=== PATIENT | female | born 1940 | race Caucasian/White ===

== ENCOUNTER 2024-01-02 06:39 | Inpatient (IN) | payer OTHER, SELFPAY ==
[2024-01-02] VITALS (7 sets, daily range): BP systolic 121–157; BP diastolic 59–83; BMI 30.9; BMI 31.9
[2024-01-02] MEDS: NSS 1000 IV ×3 (05:26→09:51)
--- NOTE | 2024-01-02 05:27 | ED.GENMED ---
History of Present Illness
General
Chief Complaint: Abdominal Symptoms
Source: patient, ambulance crew and previous hospital records (Previous hospitalization October 2020 for somewhat similar presentation, found to have partial small bowel obstruction due to abdominal wall hernia. Resolved with conservative
measures.)
Exam Limitations: none
Time Seen by Provider: 01/02/24 05:13
Nursing documentation reviewed up to this point in time: agreed with
Travel History
Have you had any contact with someone who has COVID-19?: No
Do you have any symptoms of coronavirus? Fever > 100 degrees, chills, cough, shortness of breath, sore throat, loss of taste or smell, muscle aches, or headache?: No
History of Present Illness
History of Present Illness:
This is an 83-year-old woman who resides at home with her . She has remote history of colon resection with colostomy/colostomy reversal 1985. She subsequently has history of small bowel obstructions all treated conservatively, most recently
October 2020.
She and her went out to dinner last night, she went to bed uneventfully but then awoke sometime this morning with abrupt onset of nausea, vomiting and several episodes of loose stools. She admits to intermittent crampy abdominal discomfort
but is most concerned with persistent nausea. According to EMS patient has been vomiting coffee ground material.
Very similar presentation October 2020 and at that time similar description of coffee-ground emesis. No prior history of GI bleeds.
No close contacts with similar symptoms.
No recent travel nor recent antibiotic use.
She denies dizziness nor lightheadedness. No headache, no chest pain or back pain. She denies fever nor chills.
She was given a small bolus of IV fluids prehospital as well as an IV dose of Zofran 4 mg.
Past History
Past History
ED Past Medical History: GERD, HTN, Hypothyroidism and Other (Bowel Obstruction, Fracture Left foot)
ED Past Surgical History: Bowel resection, Cholecystectomy (possible removed patient unsure) and Other (Multiple joint replacements. Multiple abdominal surgeries, diverticulits, bowel resection, colostomy and colostomy reversal last over 20 years
ago.)
Social History
Tobacco: Former smoker
Alcohol: Occasional
Drug: None
Personal:
Living: with family
Employment: Retired
Family History
Family History: Other (Noncontributory)
Phy Exam
Physical Exam
Physical Exam:
GENERAL: 83-year-old woman appears her stated age. She is moderately drowsy, oriented x 3, appears in moderate distress, holding emesis basin at the ready.
EYE: anicteric
NECK: Supple, nontender, no meningismus, no significant adenopathy.
ENT: posterior pharynx is clear, oral mucosa is mildly dry. No rhinorrhea.
CARDIAC: Regular rate and rhythm. no murmur.
LUNGS: Clear breath sounds bilaterally, no acute respiratory distress, no wheezes/rales/rhonchi
ABDOMEN: Rotund, soft, nondistended, mild to moderate tenderness left upper quadrant, left lateral mid abdomen with mild palpable firmness left lower quadrant to left mid abdomen. Hyperactive somewhat high-pitched bowel sounds throughout, no r/g,
no cvat.
NEUROLOGICAL: Moderately drowsy, oriented x3, no focal neuro deficits.
SKIN: Warm and dry, normal color, skin intact. No rash. A few streaks of dried, brown liquid stool bilateral feet and medial ankles.
MUSCULOSKELETAL: No C/C/E. peripheral pulses are full and equal b/l. No palpable tenderness.
PSYCH: Poorly interactive.
Course
Orders/Labs/Results
Orders:
Orders
01/02/24 05:11
IV Insert/Care/Rem.- Treatment PRN
01/02/24 05:12
Electrocardiogram (*1) Urgent
Reason for Study: Abdominal Pain
01/02/24 05:13
EKG- Treatment ONCE
01/02/24 05:20
0.9% Sodium Chloride 1000 ml [Nss] 1,000 ml IV BOLUS
01/02/24 05:22
Alcohol Urgent
Complete Blood Count/With Diff Urgent
Comprehensive Metabolic Panel Urgent
Lactic Acid Urgent
Lipase Urgent
01/02/24 05:24
CT Abd/pelvis W Iv Cont Urgent
Comment:
Reason For Exam: Left sided abd pain, N/V/D-hx SBO
Pantoprazole [Protonix IV] 40 mg IV NOW STA
01/02/24 05:25
Add On- LAB Urgent
Tests Added?: alcohol level
01/02/24 05:26
Urinalysis Reflex To Culture Urgent
01/02/24 05:49
0.9% Sodium Chloride 1000 ml [Nss] 1,000 ml IV BOLUS
01/02/24 05:51
Metoclopramide [Reglan] 10 mg IV NOW STA
Abnormal Lab Results
01/02/24
05:22
WBC 10.9 H 10^3/uL
(4.8-10.8)
MCH 32.1 H pg
(27.0-31.0)
Abs Immat Gran (auto) 0.1 H 10^3/uL
(0-0.05)
Absolute Neuts (auto) 7.8 H 10^3/uL
(1.4-6.5)
Immature Gran % 0.7 H %
(0-0.5)
Potassium 3.4 L mmol/L
(3.5-5.1)
Carbon Dioxide 19 L mmol/L
(22-30)
Glucose 149 H mg/dl
(70-99)
Lactic Acid 4.8 H* mmol/L
(0.7-2.0)
01/02/24 05:22
01/02/24 05:22
Vital Signs
Initial and Last Documented VS:
Initial Vital Signs
Pulse Pulse Ox
74 94
01/02/24 05:13 01/02/24 05:13
Last Documented Vital Signs
Pulse Resp BP Pulse Ox
75 22 121/83 96
01/02/24 05:30 01/02/24 05:14 01/02/24 05:14 01/02/24 05:14
MDM/Problems Addressed
Differential Diagnosis Includes:
Concern for recurrent small bowel obstruction, acute gastroenteritis, upper GI bleed, ischemic bowel. Concern for incarcerated abdominal wall hernia.
Symptoms began sometime this morning, unclear as to how long, concern for acute kidney injury/dehydration, electrolyte abnormality.
Will check labs including lactic acid.
Will initiate IV fluids and plan for CT abdomen pelvis with IV contrast.
Records reviewed. Report of several adverse reactions to narcotics. Currently without complaints of pain and nausea has improved after prehospital Zofran.
Will give an IV dose of Protonix for potential upper GI bleed.
Will consider IV Tylenol for pain if needed.
Chronic conditions affecting care: Previous abdomnial surgery
*Pulse Oximetry
Patient hypoxic: no
*EKG
Interpreted by ED Provider?: Yes
Interpretation: abnormal
Comparison EKG: changes noted (Diffuse, flattened T waves are new compared to previous EKG May 2019.)
Rate: normal
Rhythm: sinus and PAC's
[place]: left axis deviation
Interval: long QT (Borderline long QT)
QRS Pattern: normal QRS
Ischemia: non-specific ST changes
*Assistant Professor Of Nursing Interpretation
Rate: normal
Interpretation: normal
Rhythm: sinus
*Critical Care Note
Total Time (30-74mins, 75-104mins- exclusive of procedures): Not Applicable
Update Note
Update Note:
01/02/2024 0614 AM
Patient continues with nausea but has had no vomiting since arrival to the ED. Medicated with IV Reglan.
Labs remarkable for lactic acidosis at 4.8. Mildly elevated white blood cell count of 10.9. Minimal hypokalemia of 3.4. Normal H&H, normal BUN and creatinine.
CAT scan, initial interpretation by myself shows partial small bowel obstruction with several dilated loops of small bowel on the left side of the abdomen with several loops of bowel within left lower quadrant incisional hernia but no evidence of
incarcerated hernia. Overall CAT scan appears very similar to previous CAT scan October 2020.
History, exam and CAT scan consistent with recurrent small bowel obstruction.
Will admit to hospitalist service, continue IV fluids, antiemetics. Consider NG tube especially if vomiting recurs.
ED Attending Note
-
Portions of this chart may have been created with voice recognition software.� Occasional wrong word or��sound alike� substitutions may have occurred due to the inherent limitations of voice recognition software.
Discharge Plan
Departure
Patient Disposition: Admit
Date of Disposition: 01/02/24
Time of Disposition: 06:13
Admit to doctor: Joelle
Presentation/result/management discussed w/ accepting MD/DO: Hospitalist
Condition: Fair
Discharge Problem:
Partial small bowel obstruction, Incisional hernia, Acidosis, lactic
Prescriptions:
No Action
levothyroxine 150 MCG tablet
150 mcg PO DAILY
citalopram 20 MG tablet
20 mg PO DAILY
pantoprazole 40 MG tablet,delayed release (DR/EC)
40 mg PO DAILY
naproxen sodium [Aleve] 220 MG tablet
440 mg PO DAILY
letrozole 2.5 MG tablet
2.5 mg PO DAILY
Refresh Classic (PF) 10 DROPS dropperette
1 drops BOTH EYES DAILY
multivitamin with folic acid [Tab-A-Mayte] 1 TABLET tablet
1 tab PO DAILY
verapamil 180 MG tablet extended release
360 mg PO DAILY
Interventions
Interventions:
*Risk Screen - Suicide Last Done: 01/02/24 05:14
*General Assessment Last Done: 01/02/24 05:14
*Neglect/Abuse Screening Last Done: 01/02/24 05:14
*ED COVID-19 Vaccine History Last Done: 01/02/24 05:36
[facility] Assessment Last Done: 01/02/24 05:36
[2024-01-02 05:31] LABS: % Basophils 0.9 % (0-2); % Immature Granulocytes 0.7 % (0-0.5); % Lymphocytes 21.9 % (20.5-51.1); % Monocytes 3.7 % (1.7-9.3); % Neutrophils 71.8 % (42.2-75.2); Absolute Basophils 0.1 10^3/uL (0-0.2); Absolute Eosinophils 0.1 10^3/uL (0-0.7); Absolute Immature Granulocytes 0.1 10^3/uL (0-0.05); Absolute Lymphocytes 2.4 10^3/uL (1.2-3.4); Absolute Monocytes 0.4 10^3/uL (0.1-0.6); Absolute Neutrophils 7.8 10^3/uL (1.4-6.5); Hematocrit 39.2 % (37.0-47.0); Hemoglobin 13.5 g/dL (12.0-16.0); Mean Corp Hgb Conc. 34.4 g/dL (33.0-37.0); Mean Corpuscular Hgb 32.1 pg (27.0-31.0); Mean Corpuscular Volume 93.1 fL (81.0-99.0); Mean Platelet Volume 10.4 fL (7.4-10.4); Nucleated Red Blood Cells % 0 %; Platelet Count 397 10^3/uL (130-400); Red Blood Cell Count 4.21 10^6/uL (4.20-5.40); Red Cell Dist. Width 13.2 % (11.5-14.5); White Blood Cell Count 10.9 10^3/uL (4.8-10.8)
[2024-01-02] MEDS: PROTONIX IV 40 MG IV (05:31)
[2024-01-02 05:46] LABS: ALT (SGPT) 14 U/L (0-35); AST (SGOT) 26 U/L (14-36); Albumin 4.3 g/dl (3.5-5.0); Alcohol 54 mg/dl; Alkaline Phosphatase 100 U/L (38-126); Blood Urea Nitrogen 14 mg/dl (7-17); Calcium 9.5 mg/dl (8.4-10.2); Carbon Dioxide 19 mmol/L (22-30); Chloride 104 mmol/L (98-107); Estimated Creatinine Clearance 41 ml/min; Glucose 149 mg/dl (70-99); Lipase 84 U/L (23-300); Potassium 3.4 mmol/L (3.5-5.1); Sodium 137 mmol/L (135-145); Total Bilirubin 0.7 mg/dl (0.2-1.3); Total Protein 7.2 g/dl (6.3-8.2)
[2024-01-02 05:47] LABS: Lactic Acid 4.8 mmol/L (0.7-2.0)
--- NOTE | 2024-01-02 06:02 | HPS.HSE ---
Family Physician
-
Family Physician:
Chief Complaint
-
nausea, vomiting and several episodes of loose stool
History of Present Illness
83F pw abrupt onset of nausea, vomiting and several episodes of loose stools.
Reports intermittent crampy abdominal discomfort but is most concerned with persistent nausea.
According to EMS patient has been vomiting coffee ground material.
Very similar presentation October 2020 and at that time similar description of coffee-ground emesis. No prior history of GI bleeds. HX HTN, hypothyroid , remote history of colon resection with colostomy/colostomy reversal 1985, HX small bowel
obstructions all treated conservatively, most recently October 2020.
Medical History
Past Medical History
Past Medical History: Reports HTN and Hypothyroidism
Past Surgical History: Reports Other
Additional Past Surgical History:
Bowel resection, Cholecystectomy (possible removed patient unsure) and Other (Multiple joint replacements. Multiple abdominal surgeries, diverticulits, bowel resection, colostomy and colostomy reversal last over 20 years ago.)
Social History
Tobacco: Smoker
Alcohol: Occasional
Personal:
Living: With Family
Family History
Family History: Not pertinent
Allergies / Home Medications
Allergies reflects when Allergies were last updated in [facility].
Home Medications with original date entered in [facility]
Allergy/Medication List:
Allergies
Allergy/AdvReac Type Severity Reaction Status Date / Time
cefaclor [From Ceclor] Allergy Anaphylaxis Verified 09/28/21 22:09
Cephalosporins Allergy Rash Verified 09/28/21 22:09
clindamycin Allergy Anaphylaxis Verified 09/28/21 22:09
hydrocodone bitartrate Allergy Sunburn Verified 09/28/21 22:09
[From Vicodin] and skin
peeling
morphine Allergy Itching Verified 09/28/21 22:09
oxycodone [Oxycodone] Allergy Nausea / Verified 09/28/21 22:09
Vomiting
Home Medications
levothyroxine 150 mcg tablet 150 mcg PO DAILY Thyroid 08/24/11
citalopram 20 mg tablet 20 mg PO DAILY Mental Health/Anxiety 01/20/14
pantoprazole 40 mg tablet,delayed release 40 mg PO DAILY Gastrointestinal issue 05/13/18
letrozole 2.5 mg tablet 2.5 mg PO DAILY MALIGNANCY 03/18/20
multivitamin with folic acid 400 mcg tablet (Tab-A-Mayte) 1 tab PO DAILY Supplement 03/18/20
naproxen sodium 220 mg tablet (Aleve) 440 mg PO DAILY Pain 03/18/20
polyvinyl alcohol-povidone (PF) 1.4 %-0.6 % eye drops in a dropperette (Refresh Classic (PF)) 1 drops BOTH EYES DAILY Eye condition 03/18/20
verapamil 180 mg tablet,extended release 360 mg PO DAILY Blood pressure 03/18/20
Review of Systems
-
Constitutional: Reports No Symptoms
EENT: Reports No Symptoms
Respiratory: Reports No Symptoms
Cardiac: Reports No Symptoms
Abdomen/GI: Reports Abdominal Pain, Nausea, Vomiting and Diarrhea
: Reports No Symptoms
Musculoskeletal: Reports No Symptoms
Skin: Reports No Symptoms
Neurological: Reports No Symptoms
Endocrine: Reports No Symptoms
Hematologic/Lymphatic: Reports No Symptoms
Psych: Reports No Symptoms
Physical Exam
Vital Signs
Vital Signs
Pulse Resp BP Pulse Ox
75 22 121/83 96
01/02/24 05:30 01/02/24 05:14 01/02/24 05:14 01/02/24 05:14
Physical Exam
General: Other (see below )
Laboratory Results
-
01/02/24 05:22
01/02/24 05:22
Laboratory Results
Lactic Acid 4.8 mmol/L (0.7-2.0) H* 01/02/24 05:22
Total Bilirubin 0.7 mg/dl (0.2-1.3) 01/02/24 05:22
AST 26 U/L (14-36) 01/02/24 05:22
ALT 14 U/L (0-35) 01/02/24 05:22
Alkaline Phosphatase 100 U/L (38-126) 01/02/24 05:22
Lipase 84 U/L (23-300) 01/02/24 05:22
Data Reviewed
-
Lab Data: Labs Reviewed by me
Old Records: Reviewed
Impression/Plan
-
Reviewed VS: unremarkable
PE
Gen: not toxic
HEENT: ancteric
Neck: supple, no JVD
Lungs: CTA , symmetric AE
Cor: RRR S1 S2
Abdomen: Soft, nontender, mild to moderate tenderness left upper quadrant,
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
MS: no edema
Psych: nl mood and affect
Data
WCC 10.9
Hgb 13.5
Na 137
K 3.4
CO2 19
Cr 1.0
LA 4.8
Nl Lipase
ETOH 54
ASSESSMENT & PLAN
Abrupt onset of nausea, vomiting and several episodes of loose stools.
DDX: Partial SBO, Ischemic BW
- NPO and IVF
- Anti emetics
- Analgesia
- GS consult
NAG acidosis 13
Suspect lactate acidosis 2/2 partial SBO
- IV NS
- f/u BMP
ETOH 54
Suspect ETOH use disorder
- MSAS and observe for now
Essential HTN
- Held Verapamil
Hypothyroidism:
- Held LT4
Depression
- Held Citalopram
GERD
- IV Protonix
Hx breast cancer:
- Held Letrozole
DVT Px: SCD
Code: Full
IP MS
[2024-01-02] MEDS: REGLAN 10 MG IV (06:12)
[2024-01-02 07:39] LABS: Urine Albumin Trace (Neg - Trace); Urine Bilirubin Negative (Negative); Urine Character Clear (Clear); Urine Color Straw; Urine Glucose Negative (Negative); Urine Ketone Negative (Negative); Urine Leukocyte Trace (Negative); Urine Nitrite Negative (Negative); Urine Occult Blood Negative (Negative); Urine Urobilinogen Negative (Neg - 1+); Urine pH 6.5 (5.0-9.0)
[2024-01-02 07:47] LABS: Urine Bacteria Many (Negative)
[2024-01-02 07:48] LABS: Urine Red Blood Cell 0-2 /HPF (0-2)
--- NOTE | 2024-01-02 09:15 | PTCARENOTE ---
Pt admitted to room 421. Slide transferred patient from stretcher to bed. VSS. Pt denying nausea at this time. Pt oriented to room and has call dean within reach.
--- NOTE | 2024-01-02 09:33 | W.PN.HOSP.TC ---
Today's Communication/Plan
-
Conservative management of bowel obstruction for now
Monitor symptoms
Recheck electrolytes
Assessment / Plan
Assessment / Plan
Physical Exam
General: Not in acute distress
HEENT: Normocephalic
Neck: Supple
Lungs: CTAB
Cor: RRR S1 S2
Abdomen: Soft, nontender, distended
APPLICATION TRAINER: AAOx3
Psych: Calm
Assessment/Plan
Abrupt onset of nausea, vomiting and several episodes of loose stools
Partial small bowel obstruction most likely due to adhesions (but less likely due to hernia)
History of Incision Hernia
History of Intestinal Adhesions
History of Colectomy
History of Small Bowel Obstruction
- NPO and IVF
- Anti emetics
- Analgesia
- General surgery consulted, recommendations appreciated
- If symptoms worsen (e.g. vomiting) then place nasogastric tube and notify general surgery
Prolonged QTc
-Avoid/minimize QTc-prolonging medications
- Can consider giving Tigan if needed
Lactate acidosis likely secondary to partial SBO
- IV NS
- f/u BMP
- recheck lactic acid
Hypokalemia
-IV potassium ordered
-Check magnesium
-Recheck labs in the morning
ETOH 54
Suspect ETOH use disorder
- MSAS and observe for now
Essential HTN
- Resumed home Verapamil (at home she takes 180 mg daily but not 360 mg daily)
Hyperlipidemia
Hypothyroidism:
- Continue home Levothyroxine
Major Depressive Disorder
- Hold Citalopram due to QTc
GERD
- Continue PPI
Hx breast cancer:
- Continue Letrozole
Chronic Kidney Disease
Recurrent Urinary Tract Infection
Colonic Diverticulitis
Abdominal aortic atherosclerosis
Osteoarthritis
Non-Alcoholic Fatty Liver Disease
Alcoholism
History of Osteopenia
History of Vertebral Compression Fracture
History of Gait Disorder
Obesity
DVT PPx: Lovenox
Code: Full
Anticipated Discharge: 24 - 48 hours
Subjective/Interval History
-
Date of Service: January 02, 2024
Patient was seen and examined. Her son and grandson were present in the patient's room at the time of patient encounter. She denied nausea or abdominal pain at the time she was seen.
Objective Data
-
Labs:
Laboratory Results
01/02/24
05:22
WBC 10.9 H
Hgb 13.5
Hct 39.2
Plt Count 397
Sodium 137
Potassium 3.4 L
Chloride 104
Carbon Dioxide 19 L
BUN 14
Creatinine 1.0
Glucose 149 H
Calcium 9.5
Total Bilirubin 0.7
AST 26
ALT 14
Alkaline Phosphatase 100
Vital Signs:
Vital Signs
Temp Pulse Resp BP Pulse Ox
97.6 F 98 16 149/76 98
01/02/24 08:52 01/02/24 08:52 01/02/24 08:52 01/02/24 08:52 01/02/24 08:52
[2024-01-02] MEDS: THIAMINE INJECTION 200 MG IV ×2 (09:52→20:16)
--- NOTE | 2024-01-02 11:41 | CON.GS ---
Consultation
-
Date/Time Consultation Requested: 01/02/2024 @8:38
Date/Time Consultation Performed: 01/02/2024 @9:00
Requesting Provider: Mikhail Cedillo MD
Performing Provider: Philip Reis MD
Reason for Consultation: Partial small bowel resection
Medical History
-
Chief Complaint: Nausea and vomiting
History of Present Illness:
83-year-old female who presents to the ED with the acute onset of nausea, vomiting and loose stools that began last night. She states she ate shrimp and corn and the symptoms began shortly thereafter. She has not vomited since last night and her
last bowel and flatus was also last evening. At present her nausea has resolved but she is not hungry. She was having some lower abdominal cramps in the lower abdomen that has also resolved. She still feels somewhat bloated and has no appetite.
She denies any fevers or chills.
She has a history of small bowel obstructions, the last one in 2019. She has a remote history of an open sigmoid resection and colostomy for diverticulitis. After the stoma closure she may have had a wound dehiscence. She had an ostomy hernia
repair using a [place] hernia patch with a bridge technique. She has had 3 bowel obstructions (2015, 2017, 2019), all of which were treated nonoperatively.
Past Medical History
Past Medical History: GERD, HTN, Hypothyroidism and Other (Small bowel obstructions)
Past Surgical History: Bowel Resection (Eren's procedure for diverticulitis), Hernia Repair (Ostomy site) and Orthopedic (Multiple joint replacements)
Social History
Tobacco: Former Smoker
Alcohol: Occasional
Drug: None
Personal:
Living: With Family
Family History
Family History: Reviewed & Not Pertinent
Allergies / Home Medications
Allergy/AdvReac Type Severity Reaction Status Date / Time
cefaclor [From Ceclor] Allergy Anaphylaxis Verified 09/28/21 22:09
Cephalosporins Allergy Rash Verified 09/28/21 22:09
clindamycin Allergy Anaphylaxis Verified 09/28/21 22:09
hydrocodone bitartrate Allergy Sunburn Verified 09/28/21 22:09
[From Vicodin] and skin
peeling
morphine Allergy Itching Verified 09/28/21 22:09
oxycodone [Oxycodone] Allergy Nausea / Verified 09/28/21 22:09
Vomiting
Medication Instructions Recorded Confirmed Type
levothyroxine 150 mcg tablet 150 mcg PO DAILY Thyroid 08/24/11 01/02/24 History
citalopram 20 mg tablet 20 mg PO DAILY Mental 01/20/14 01/02/24 History
Health/Anxiety
pantoprazole 40 mg tablet,delayed 40 mg PO DAILY Gastrointestinal 05/13/18 01/02/24 History
release issue
letrozole 2.5 mg tablet 2.5 mg PO DAILY MALIGNANCY 03/18/20 01/02/24 History
multivitamin with folic acid 400 1 tab PO DAILY Supplement 03/18/20 01/02/24 History
mcg tablet (Tab-A-Mayte)
naproxen sodium 220 mg tablet 440 mg PO DAILY Pain 03/18/20 01/02/24 History
(Aleve)
polyvinyl alcohol-povidone (PF) 1 drops BOTH EYES DAILY Eye 03/18/20 01/02/24 History
1.4 %-0.6 % eye drops in a condition
dropperette (Refresh Classic (PF))
verapamil 180 mg tablet,extended 360 mg PO DAILY Blood pressure 03/18/20 01/02/24 History
release
Review of Systems
-
History Source: Patient
All other systems: Negative unless noted
A 10 point review of systems was completed, and was negative except as per HPI.
Physical Exam
Vital Signs
Temp Pulse Resp BP Pulse Ox
97.6 F 98 16 149/76 98
01/02/24 08:52 01/02/24 08:52 01/02/24 08:52 01/02/24 08:52 01/02/24 08:52
01/01/24 01/02/24 01/03/24
06:59 06:59 06:59
Actual Weight 76.6 kg 76.43 kg
Body Mass Index (BMI) 31.9
Lab Results
01/02/24 05:22
01/02/24 05:22
WBC 10.9 10^3/uL (4.8-10.8) H 01/02/24 05:22
Hgb 13.5 g/dL (12.0-16.0) 01/02/24 05:22
Hct 39.2 % (37.0-47.0) 01/02/24 05:22
Plt Count 397 10^3/uL (130-400) 01/02/24 05:22
Abs Immat Gran (auto) 0.1 10^3/uL (0-0.05) H 01/02/24 05:22
Neutrophils % 71.8 % (42.2-75.2) 01/02/24 05:22
Physical Exam
General: Well Developed, Well Nourished and No Apparent Distress
HEENT: Normocephalic
GI: Soft, Non Tender, Distended (Palpable bowel loops within the hernia at the ostomy site; nontender and no overlying skin changes), Incisions (Long midline incision; colostomy incision with a hernia) and Obese
Musculoskeletal: No Edema
Neuro: Awake and Alert
Data Reviewed
-
CT Scan: Image Personally Visualized and interpreted, Report Reviewed by me and Discussed with Patient
Labs: Labs Reviewed by me and Discussed with Patient
Total Time Spent with Patient (in minutes): 58
Assessment / Plan
-
Partial small bowel obstruction most likely due to adhesions, and less likely the hernia. Her symptoms occurred after dietary indiscretion. At the present time there is no concern for bowel compromise there is no evidence of an internal hernia or
high-grade obstruction. I suspect the point of obstruction is the left lower quadrant and the dilated loops within the hernia sac are secondary.
I reviewed the current findings and treatment options with the patient including nonoperative management versus surgery with the risks and benefits of each. I do not feel surgery is indicated at this time. As she is feeling better, will hold off
on a nasogastric tube unless her symptoms worsen. Will keep her n.p.o. today and hydrate. No oral contrast was given so x-rays are not ordered for the a.m.
[2024-01-02] MEDS: CALAN EXTENDED RELEASE 180 MG PO (12:27)
[2024-01-02] MEDS: REFRESH EYE DROPS (PF) 1 DROPS BOTH EYES (12:28)
[2024-01-02] MEDS: FEMARA 2.5 MG PO (12:39)
[2024-01-02] MEDS: THERAGRAN PO (12:39)
[2024-01-02] MEDS: KCL 260 MEQ IV (13:36)
--- NOTE | 2024-01-02 18:25 | PTCARENOTE ---
Pt had 2 large liquid/loose brown BM's this afternoon. Pt denying nausea at this time.
[2024-01-02 19:27] LABS: Lactic Acid 0.7 mmol/L (0.7-2.0)
[2024-01-02] MEDS: HEPARIN 5000 UNITS SC (20:15)
[2024-01-02] MEDS: MELATONIN 5 MG PO (21:06)
[2024-01-03] MEDS: NSS 1000 IV (02:04)
[2024-01-03 06:00] VITALS: BMI 31.1
[2024-01-03] MEDS: SYNTHROID 150 MCG PO (06:00)
[2024-01-03 08:09] LABS: Hematocrit 31.8 % (37.0-47.0); Hemoglobin 10.8 g/dL (12.0-16.0); Mean Corpuscular Hgb 32.9 pg (27.0-31.0); Platelet Count 295 10^3/uL (130-400); Red Blood Cell Count 3.28 10^6/uL (4.20-5.40); Red Cell Dist. Width 13.4 % (11.5-14.5); White Blood Cell Count 8.8 10^3/uL (4.8-10.8)
[2024-01-03 08:55] LABS: Blood Urea Nitrogen 14 mg/dl (7-17); Calcium 8.4 mg/dl (8.4-10.2); Carbon Dioxide 21 mmol/L (22-30); Chloride 110 mmol/L (98-107); Estimated Creatinine Clearance 49 ml/min; Glucose 78 mg/dl (70-99); Magnesium 1.5 mg/dl (1.6-2.3); Phosphorus 3.6 mg/dl (2.5-4.5); Sodium 137 mmol/L (135-145); eGFR > 60.00
--- NOTE | 2024-01-03 08:57 | W.PN.GS2 ---
Today's Communication / Plan
-
Small bowel follow-through.
Continue nonoperative management of small bowel obstruction (n.p.o., IV fluids, out of bed and ambulate).
Assessment / Plan
-
This is an 83-year-old female with history of sigmoid colectomy status post reversal complicated by stoma site hernia status post bridged [place] hernia patch who presents to our hospital on 01/02/2024 with nausea, vomiting and abdominal pain found to
have recurrent small bowel obstruction in the setting of a known left lower quadrant incisional hernia. She has had 3 prior bowel obstructions (2015, 2017, 2019) treated nonoperatively.
On my review of the CT scan, the transition point seems to be in the left lower quadrant and not within the hernia. However this is a little bit limited given no oral contrast.
Will plan for small bowel follow-through today.
N.p.o., IV fluids. No NG tube for now.
Surgery will continue to follow
Time Spent
Total Time Spent with Patient (in minutes): 25
Subjective Data
-
Date of Service: January 03, 2024
Interval Events:
No acute events overnight. Slept well. Pain Controlled. Denies Nausea/Vomiting, +bowel function.
Objective Data
-
Intake and Output
01/02/24 01/03/24 01/04/24
06:59 06:59 06:59
Intake Total 1780 / 1780
Balance 1780 / 1780
Intake:
Oral fluids 120 / 120
IV fluids (Total) 1400 / 1400
IV piggybacks 260 / 260
Other:
Number of approximated MODERATE 2
amounts of urine
Number of unmeasured liquid
stools
Rectum 1
Vital Signs
Temp Pulse Resp BP Pulse Ox
99.1 F 85 16 143/75 95
01/02/24 23:12 01/02/24 23:12 01/02/24 23:12 01/02/24 23:12 01/02/24 23:12
Lab Results
01/03/24 07:29
01/03/24 07:
Calcium 8.4 mg/dl (8.4-10.2) 01/03/24 07:29
Phosphorus 3.6 mg/dl (2.5-4.5) 01/03/24 07:
Magnesium 1.5 mg/dl (1.6-2.3) L 01/03/24 07:29
Total Bilirubin 0.7 mg/dl (0.2-1.3) 01/02/24 05:22
AST 26 U/L (14-36) 01/02/24 05:22
ALT 14 U/L (0-35) 01/02/24 05:22
Alkaline Phosphatase 100 U/L (38-126) 01/02/24 05:22
Total Protein 7.2 g/dl (6.3-8.2) 01/02/24 05:22
Albumin 4.3 g/dl (3.5-5.0) 01/02/24 05:22
Physical Exam
-
GENERAL/NEURO: Awake, Alert, no distress
CHEST: Unlabored breathing on RA
ABDOMEN: Soft, obese, mildly distended, mildly tender to palpation in the left lower quadrant. Soft reducible hernia noted.
[2024-01-03] MEDS: THERAGRAN 1 TABLET PO (09:08)
[2024-01-03] MEDS: FEMARA 2.5 MG PO (09:08)
[2024-01-03] MEDS: REFRESH EYE DROPS (PF) 1 DROPS BOTH EYES (09:08)
[2024-01-03] MEDS: CALAN EXTENDED RELEASE 180 MG PO (09:08)
[2024-01-03] MEDS: NSS (PRESERVATIVE FREE) 10 ML IV (09:09)
[2024-01-03] MEDS: HEPARIN 5000 UNITS SC ×2 (09:09→20:26)
[2024-01-03] MEDS: PROTONIX IV 40 MG IV (09:09)
[2024-01-03 09:20] VITALS: BP 140/66
[2024-01-03] MEDS: THIAMINE INJECTION 200 MG IV ×2 (09:22→20:28)
--- NOTE | 2024-01-03 14:14 | W.PN.HOSP.TC ---
Today's Communication/Plan
-
stop Verapamil
continue IVF
supplement Mag
Assessment / Plan
Assessment / Plan
Assessment/Plan
Abrupt onset of nausea, vomiting and several episodes of loose stools
CT abd:Mild small bowel dilatation especially left lower quadrant likely associated with anterior abdominal wall hernia likely at site of prior colostomy reversal, suggesting recurrent partial small bowel obstruction. No large bowel obstruction or
free air.
Moderate size hiatal hernia again noted.
Likely subsegmental atelectasis and/or scarring in the left lower lobe. Acute inflammatory/infectious process less likely but cannot be entirely excluded.
Slightly prominent gallbladder and slightly prominent extrahepatic biliary tract without findings to suggest intrahepatic biliary tract dilatation. Suggest correlation with liver function tests.
Small Bowel Study:There is no small bowel obstruction.
There is a left lower quadrant anterior abdominal wall hernia, without obstruction. Initial imaging revealed mild wall thickening however this improves and resolves on delayed imaging.
Contrast is seen within the colon at 1 hour 5 minutes.
Hx of sigmoid colectomy with reversal admitted with presentation consistent with SBO. Passage of stool and active BS noted
History of Incision Hernia
History of Intestinal Adhesions
History of Colectomy
History of Small Bowel Obstruction
- NPO and IVF
start on clears when okay with surgery
- Anti emetics
- Analgesia
- General surgery consulted, recommendations appreciated
- If symptoms worsen (e.g. vomiting) then place nasogastric tube and notify general surgery
Prolonged QTc
-Avoid/minimize QTc-prolonging medications
- Can consider giving Tigan if needed
Lactate acidosis likely secondary to partial SBO
4.8-->0.7
Hypokalemia
better 3.4-->4.0
Hypomagnesemia
1.5
ETOH 54
Suspect ETOH use disorder
- MSAS and observe for now
Essential HTN
- will stop home Verapamil (at home she takes 180 mg daily but not 360 mg daily)
very constipating agent. Would consider alternate BP agent. BP currently 140/66
Hyperlipidemia
Hypothyroidism:
- Continue home Levothyroxine
Major Depressive Disorder
- Hold Citalopram due to QTc
GERD
- Continue PPI
Hx breast cancer:
- Continue Letrozole
Chronic Kidney Disease
Recurrent Urinary Tract Infection
Colonic Diverticulitis
Abdominal aortic atherosclerosis
Osteoarthritis
Non-Alcoholic Fatty Liver Disease
Alcoholism
History of Osteopenia
History of Vertebral Compression Fracture
History of Gait Disorder
Obesity
DVT PPx: Lovenox
Code: Full
Anticipated Discharge: > 48 hours
Subjective/Interval History
-
Date of Service: January 03, 2024
Just passed large amount of stool
Objective Data
-
Labs:
Laboratory Results
01/03/24
07:29
WBC 8.8
Hgb 10.8 L
Hct 31.8 L
Plt Count 295 D
Sodium 137
Potassium 4.0
Chloride 110 H
Carbon Dioxide 21 L
BUN 14
Creatinine 0.8
Glucose 78
Calcium 8.4
Vital Signs:
Vital Signs
Temp Pulse Resp BP Pulse Ox
98.4 F 72 16 140/66 95
01/03/24 09:20 01/03/24 09:20 01/03/24 09:20 01/03/24 09:20 01/03/24 09:20
I&O
01/02/24 01/03/24 01/04/24
06:59 06:59 06:59
Intake Total 1779
Balance 1779
Review of Systems
-
History Source: Patient and Coordinated Provider
Constitutional: Denies Fever
EENT: Reports No Symptoms Reported
Respiratory: Reports No Symptoms
Cardiac: Reports No Symptoms
Abdomen/GI: Reports Abdominal Pain (left lower quadrant)
Genitourinary: Reports No Symptoms
Physical Exam
-
General: Well Developed, Well Nourished and No Apparent Distress
HEENT: Normocephalic, Atraumatic and Moist Mucous Membranes
Respiratory: Clear to Auscultation; Negative Wheezes, Rales or Rhonchi
Cardiac: Regular Rhythm and S1/S2
GI: Soft, Normal Bowel Sounds, Tender (LLQ) and Distended (mildly)
Musculoskeletal: No Clubbing, No Cyanosis and No Edema
Neuro: Awake, Alert and Oriented
[2024-01-03 15:25] VITALS: BP 148/69
--- NOTE | 2024-01-03 16:00 | PTCARENOTE ---
Patient diet advanced to clear liquid per approval of Dr. Mei and Dr. Villalta.
[2024-01-03] MEDS: NSS IV (16:25)
[2024-01-03] MEDS: MAGNESIUM SULFATE 50 IV (16:37)
[2024-01-03] MEDS: 0.45% NACL with KCL 20 MEQ 1000 IV (16:38)
--- NOTE | 2024-01-03 16:56 | W.PN.UPDATE ---
Update Note
Progress Note Update
Small bowel follow-through reviewed.
No sign of obstruction, okay for clears and advance diet as tolerated.
Anticipate possible discharge home tomorrow. I will see her in my office for follow-up in 2 to 3 weeks.
--- NOTE | 2024-01-03 17:32 | CM ---
Spoke with patients daughter bedside.
Per daughter patient lives with her spouse on her daughters property.
Patient lives in a 1 story home and is able to ambulate in the home with cane of furniture surfing.
Per daughter patient stopped drinking alcohol after her last admission.
Patient does no drive.
Patients spouse does drive and takes patient to appointments.
Per daughter she thinks her mother would benefit from some therapy and PT/OT as she is not steady.
Therapy evals pending.
She stated that there is currently no plan for surgery, but her mom may eventually need surgery scheduled.
will follow for d/c needs.
Discussed private caregivers with daughter and she stated she did reach out, however since dad was in the home they would have to pay for both (daughterly companions).
Patient may benefit from additional resources re private care.
Plan: home with VN vs skilled
[2024-01-03] MEDS: MELATONIN 5 MG PO (20:29)
--- NOTE | 2024-01-03 20:38 | W.PN.UPDATE ---
Update Note
Progress Note Update
Received call from night RN regarding a verbal order taken from Dayshift RN by attending regarding UTI
ORder originally stated : unasyn 3 mg iv q8 (pharmacy questioned freq and also pt has allergy and no reason for abx)
Based on pt allergy reviewed antibiotic choices with pharmacy
Cefaclor - allergy is anaphylaxsis
cephlosprin - allergy is rash
clindamycin- allergy is anaphylaxsis
Can't have levaquin due to long qt
Will give dose of fosfomycin 3g po
[2024-01-03] MEDS: MONUROL 3 GM PO (21:14)
[2024-01-03 23:01] VITALS: BP 149/63
[2024-01-04] MEDS: 0.45% NACL with KCL 20 MEQ 1000 IV ×2 (03:58→12:03)
[2024-01-04] MEDS: SYNTHROID 150 MCG PO (04:21)
[2024-01-04 06:00] VITALS: BMI 31.3
[2024-01-04 07:58] LABS: % Basophils 1.1 % (0-2); % Eosinophils 2.9 % (0-6); % Immature Granulocytes 0.5 % (0-0.5); % Neutrophils 62.5 % (42.2-75.2); Absolute Basophils 0.1 10^3/uL (0-0.2); Absolute Eosinophils 0.2 10^3/uL (0-0.7); Absolute Lymphocytes 1.9 10^3/uL (1.2-3.4); Absolute Monocytes 0.6 10^3/uL (0.1-0.6); Absolute Neutrophils 4.8 10^3/uL (1.4-6.5); Hematocrit 33.2 % (37.0-47.0); Hemoglobin 11.1 g/dL (12.0-16.0); Mean Corp Hgb Conc. 33.4 g/dL (33.0-37.0); Mean Corpuscular Volume 95.7 fL (81.0-99.0); Mean Platelet Volume 10.9 fL (7.4-10.4); Nucleated Red Blood Cells % 0 %; Platelet Count 291 10^3/uL (130-400); Red Blood Cell Count 3.47 10^6/uL (4.20-5.40); Red Cell Dist. Width 13.4 % (11.5-14.5); White Blood Cell Count 7.6 10^3/uL (4.8-10.8)
[2024-01-04] MEDS: PROTONIX IV 40 MG IV (08:14)
[2024-01-04] MEDS: THIAMINE INJECTION 200 MG IV (08:15)
[2024-01-04] MEDS: THERAGRAN 1 TABLET PO (08:15)
[2024-01-04] MEDS: NSS (PRESERVATIVE FREE) 10 ML IV (08:15)
[2024-01-04] MEDS: FEMARA 2.5 MG PO (08:15)
[2024-01-04] MEDS: REFRESH EYE DROPS (PF) 1 DROPS BOTH EYES (08:16)
[2024-01-04] MEDS: HEPARIN 5000 UNITS SC (08:19)
[2024-01-04 08:30] LABS: Blood Urea Nitrogen 10 mg/dl (7-17); Carbon Dioxide 21 mmol/L (22-30); Chloride 106 mmol/L (98-107); Estimated Creatinine Clearance 66 ml/min; Glucose 84 mg/dl (70-99); Magnesium 1.9 mg/dl (1.6-2.3); Phosphorus 3.1 mg/dl (2.5-4.5); Potassium 4.1 mmol/L (3.5-5.1); Sodium 135 mmol/L (135-145); eGFR > 60.00
[2024-01-04 09:35] VITALS: BP 138/63
--- NOTE | 2024-01-04 09:48 | W.PN.GS2 ---
Today's Communication / Plan
-
-- ADAT to LRD
Assessment / Plan
-
This is an 83-year-old female with history of sigmoid colectomy status post reversal complicated by stoma site hernia status post bridged Tabor hernia patch who presents to our hospital on 01/02/2024 with nausea, vomiting and abdominal pain found to
have recurrent small bowel obstruction in the setting of a known left lower quadrant incisional hernia. She has had 3 prior bowel obstructions (2015, 2017, 2019) treated nonoperatively.
Clinical and radiographic improvement of adhesive SBO. No plans for surgical intervention.
-- ADAT to LRD
-- Please call with questions or concerns
Subjective Data
-
Date of Service: January 04, 2024
Abdominal pain improved, residual on LEFT. No nausea or emesis. Passing flatus and BM. No fevers.
Objective Data
-
Intake and Output
01/03/24 01/04/24 01/05/24
06:59 06:59 06:59
Intake Total 1780 / 1780 2220 / 2220
Balance 1780 / 1780 2220 / 2220
Intake:
Oral fluids 120 / 120 1020 / 1020
IV fluids (Total) 1400 / 1400 1200 / 1200
IV piggybacks 260 / 260
Other:
Number of approximated MODERATE 2 3
amounts of urine
How many times incontinent 1
MODERATE amount urine
Number of unmeasured liquid
stools
Rectum 1
Vital Signs
Temp Pulse Resp BP Pulse Ox
98.1 F 76 20 149/63 96
01/03/24 23:01 01/03/24 23:01 01/03/24 23:01 01/03/24 23:01 01/03/24 23:01
Lab Results
01/04/24 06:53
01/04/24 06:53
Calcium 9.0 mg/dl (8.4-10.2) 01/04/24 06:53
Phosphorus 3.1 mg/dl (2.5-4.5) 01/04/24 06:53
Magnesium 1.9 mg/dl (1.6-2.3) 01/04/24 06:53
Total Bilirubin 0.7 mg/dl (0.2-1.3) 01/02/24 05:22
AST 26 U/L (14-36) 01/02/24 05:22
ALT 14 U/L (0-35) 01/02/24 05:22
Alkaline Phosphatase 100 U/L (38-126) 01/02/24 05:22
Total Protein 7.2 g/dl (6.3-8.2) 01/02/24 05:22
Albumin 4.3 g/dl (3.5-5.0) 01/02/24 05:22
Physical Exam
-
Gen: NAD
Abd: soft, obese, minimal tenderness on RIGHT, non-peritoneal
[2024-01-04 09:52] VITALS: BP 138/63; O2SAT 98
[2024-01-04 13:56] VITALS: BP 166/76
--- NOTE | 2024-01-04 14:00 | W.PN.HOSP.TC ---
Addendum entered and electronically signed by Konstantin Mei MD 01/05/24 15:45:
Received call from pharmacist hours after pt was discharged, that pt's dgt thought pt was in fact allergic to Sulfa and that the pt must have forgotten. Med changed to Nitrofurantoin bid for 3 days and Bactrim Rx was cancelled.
Original Note:
Today's Communication/Plan
-
dc to home
Assessment / Plan
Assessment / Plan
Assessment/Plan
Abrupt onset of nausea, vomiting and several episodes of loose stools
CT abd:Mild small bowel dilatation especially left lower quadrant likely associated with anterior abdominal wall hernia likely at site of prior colostomy reversal, suggesting recurrent partial small bowel obstruction. No large bowel obstruction or
free air.
Moderate size hiatal hernia again noted.
Likely subsegmental atelectasis and/or scarring in the left lower lobe. Acute inflammatory/infectious process less likely but cannot be entirely excluded.
Slightly prominent gallbladder and slightly prominent extrahepatic biliary tract without findings to suggest intrahepatic biliary tract dilatation. Suggest correlation with liver function tests.
Small Bowel Study:There is no small bowel obstruction.
There is a left lower quadrant anterior abdominal wall hernia, without obstruction. Initial imaging revealed mild wall thickening however this improves and resolves on delayed imaging.
Contrast is seen within the colon at 1 hour 5 minutes.
Hx of sigmoid colectomy with reversal admitted with presentation consistent with SBO. Passage of stool and active BS noted, good BM's. Pt states she feels back to normal and would like to go home
History of Incision Hernia
History of Intestinal Adhesions
History of Colectomy
History of Small Bowel Obstruction
mild UTI with sens E. Coli
pt states she is not allergic to Sulfa, will dc on short course
Prolonged QTc
Lactate acidosis likely secondary to partial SBO
4.8-->0.7
Hypokalemia
better 3.4-->4.0
Hypomagnesemia
1.5
ETOH 54
Suspect ETOH use disorder
- MSAS and observe for now
Essential HTN
- will stop home Verapamil (at home she takes 180 mg daily but not 360 mg daily)
very constipating agent. Will dc on low dose Toprol
Hyperlipidemia
Hypothyroidism:
- Continue home Levothyroxine
Major Depressive Disorder
- Hold Citalopram due to QTc
GERD
- Continue PPI
Hx breast cancer:
- Continue Letrozole
Chronic Kidney Disease
Recurrent Urinary Tract Infection
Colonic Diverticulitis
Abdominal aortic atherosclerosis
Osteoarthritis
Non-Alcoholic Fatty Liver Disease
Alcoholism
History of Osteopenia
History of Vertebral Compression Fracture
History of Gait Disorder
Obesity
DVT PPx: Lovenox
Code: Full
dc now
More than 30 minutes spent in discharge including
Final examination of the patient
Summarizing hospital stay
Instructions for continuing care to all relevant caregivers
Preparation of discharge records, prescriptions, and referral forms
Total time spent (in minutes): 45
Anticipated Discharge: Today
Subjective/Interval History
-
Date of Service: January 04, 2024
Moving bowels and states her belly is back to her usual status
Objective Data
-
Labs:
Laboratory Results
01/04/24
06:53
WBC 7.6
Hgb 11.1 L
Hct 33.2 L
Plt Count 291
Sodium 135
Potassium 4.1
Chloride 106
Carbon Dioxide 21 L
BUN 10
Creatinine 0.6
Glucose 84
Calcium 9.0
Vital Signs:
Vital Signs
Temp Pulse Resp BP Pulse Ox
97.5 F 74 18 166/76 97
01/04/24 13:56 01/04/24 13:56 01/04/24 13:56 01/04/24 13:56 01/04/24 13:56
I&O
01/03/24 01/04/24 01/05/24
06:59 06:59 06:59
Intake Total 1779
Balance 1779
Review of Systems
-
History Source: Patient and Coordinated Provider
Constitutional: Denies Fever
EENT: Reports No Symptoms Reported
Respiratory: Reports No Symptoms
Cardiac: Reports No Symptoms
Abdomen/GI: Reports Abdominal Pain (left lower quadrant resolved)
Genitourinary: Reports No Symptoms
Physical Exam
-
General: Well Developed, Well Nourished and No Apparent Distress
HEENT: Normocephalic, Atraumatic and Moist Mucous Membranes
Respiratory: Clear to Auscultation; Negative Wheezes, Rales or Rhonchi
Cardiac: Regular Rhythm and S1/S2
GI: Soft, Normal Bowel Sounds, Tender (LLQ resolved) and Distended (resolved)
Musculoskeletal: No Clubbing, No Cyanosis and No Edema
Neuro: Awake, Alert and Oriented
--- NOTE | 2024-01-04 14:29 | W.DS.TRANS ---
DC Summary - Core Blower
-
Discharge Instructions:
Discharge Diagnosis/Procedures Small Bowel Obstruction
Diet Regular,Low Fiber
Activity As tolerated,No strenuous activity
Driving Restrictions No driving
Bathing Restrictions None
Blood Work CBC, BMP, UA in 1-2 weeks
Other Services VN
Stop these medications: Verapamil
Instructions:
Stand-Alone Forms:
Changes to Home Medications: Yes
Discharge Medications:
DC Medications w/original date entered in [email or web address]
levothyroxine 150 mcg tablet 150 mcg PO DAILY Thyroid 08/24/11
citalopram 20 mg tablet 20 mg PO DAILY Mental Health/Anxiety 01/20/14
pantoprazole 40 mg tablet,delayed release 40 mg PO DAILY Gastrointestinal issue 05/13/18
letrozole 2.5 mg tablet 2.5 mg PO DAILY MALIGNANCY 03/18/20
multivitamin with folic acid 400 mcg tablet (Tab-A-Mayte) 1 tab PO DAILY Supplement 03/18/20
polyvinyl alcohol-povidone (PF) 1.4 %-0.6 % eye drops in a dropperette (Refresh Classic (PF)) 1 drops BOTH EYES DAILY Eye condition 03/18/20
metoprolol succinate 50 mg tablet,extended release 24 hr (Toprol XL) 50 mg PO DAILY #30 tabs 01/04/24
polyethylene glycol 3350 17 gram/dose oral powder (Miralax) 4 g PO DAILY #119 grams 01/04/24
sulfamethoxazole 800 mg-trimethoprim 160 mg tablet (Bactrim DS) 1 tab PO BID #6 tabs 01/04/24
Home Medication Changes
short course of Bactrim DS for mild UTI
stop Verapamil
start low dose Toprol XL
would add Miralax, start with 1/2 dose during first week, then increase to full scoop assuming tolerating
Pending Results: No
--- NOTE | 2024-01-04 14:38 | CM ---
CM reviewed chart and noted dc order
Bedside meeting with pt
She is requesting VN to be arranged through [facility]
IMM completed day prior
She already contacted dtr to transport home
VN order on chart
Referral made to [facility] via [facility]
PCP is Juan Quick
Discharge Disposition- home with [facility] VN- family transport
Fax- [phone]
== END 2024-01-04 16:33 | disposition home health service (06) | DRG 389 ==
LOC: 4 WEST ACU 06:39
PROVIDERS: Hospitalist; ADMITTING PHYSICIAN Internal Medicine; ATTENDING PHYSICIAN Internal Medicine; CONSULT PHYSICIAN Surgery; EMERGENCY PHYSICIAN Emergency Medicine
DX: K56.600 Partial intestinal obstruction, unspecified as to cause (principal); E87.20 Acidosis, unspecified; N39.0 Urinary tract infection, site not specified; I10 Essential (primary) hypertension; E03.9 Hypothyroidism, unspecified; B96.20 Unspecified Escherichia coli [E. coli] as the cause of diseases classified elsewhere; E87.6 Hypokalemia; E83.42 Hypomagnesemia; K21.9 Gastro-esophageal reflux disease without esophagitis; E66.9 Obesity, unspecified; Z68.31 Body mass index [BMI] 31.0-31.9, adult; Z85.3 Personal history of malignant neoplasm of breast; Z88.2 Allergy status to sulfonamides
CPT/HCPCS: 74177; 74250; 80048; 80053; 81003; 81015; 82077; 83605; 83690; 83735; 84100; 85025; 85027; 87086; 87088; 87186; 87324; 87449; 93005; 96361; 96374; 96375; 97162; 97166; 99285; J3480; Q9967

== ENCOUNTER → 2024-02-10 11:28 | Outpatient (REF) | payer OTHER, SELFPAY | LOC: DHCBC/DCA 11:28 | PROVIDERS: ATTENDING PHYSICIAN Internal Medicine Cardiovascular Disease; FAMILY PHYSICIAN Family Medicine | DX: R06.02 Shortness of breath (principal) | CPT/HCPCS: 78452; 93017; A9500; J2785 ==

== ENCOUNTER → 2024-02-11 15:58 | Outpatient (REF) | payer OTHER, SELFPAY | LOC: DHCBS MAIN 15:58 | PROVIDERS: ATTENDING PHYSICIAN Internal Medicine Cardiovascular Disease; FAMILY PHYSICIAN Family Medicine | DX: R06.02 Shortness of breath (principal) | CPT/HCPCS: 93306 ==

== ENCOUNTER → 2024-08-04 14:25 | Outpatient (REF) | payer OTHER, SELFPAY | LOC: WDC 14:25 | PROVIDERS: ATTENDING PHYSICIAN Internal Medicine Hematology & Oncology; FAMILY PHYSICIAN Family Medicine | DX: Z12.31 Encounter for screening mammogram for malignant neoplasm of breast (principal) | CPT/HCPCS: 77063; 77067 ==

== ENCOUNTER → 2025-01-03 17:09 | Outpatient (REF) | payer OTHER, SELFPAY | LOC: RAD 17:09 | PROVIDERS: ATTENDING PHYSICIAN Family Medicine | DX: R05.1 Acute cough (principal); W19.XXXA Unspecified fall, initial encounter; M54.50 Low back pain, unspecified; S09.90XA Unspecified injury of head, initial encounter | CPT/HCPCS: 70450; 71046; 72110 ==

== ENCOUNTER 2025-08-12 13:59 | Inpatient (IN) | payer OTHER, SELFPAY ==
[2025-08-12] VITALS (63 sets, daily range): BP systolic 84–216; BP diastolic 44–118; BMI 28.4
[2025-08-12 12:52] LABS: Glucose - Point of Care 114 mg/dl (70-99)
--- NOTE | 2025-08-12 12:55 | CON.NEURO ---
Consultation
Order
Date of Consultation: 08/12/25
Requesting Provider: Jay Huntley DO
Reason for Consult: Stroke alert
Prehospital notification: 12:36
pantoprazole lisinopril citalopram letrozole ibuprofen levothyroxine
Neurology Consultation Note.
HPI: This is an 85-year-old right-handed woman who presented to [facility] on 08/12/2025 with left-sided weakness.
According to EMS around at 11:40 AM today, she developed left-sided weakness prompting the evaluation.
The patient's reports that she woke up fine this morning and had a good morning, getting out of bed using her walker as usual. Around 10:30 AM, while having breakfast, the noticed that the patient 'wasn't right.' She was not moving
her left side and couldn't speak.
The initially waited to see if the patient's condition would improve, but when it did not, he called an ambulance. The patient was fine the previous night, with no reported recent falls, injuries, or bleeding. Mr. Nolasco mentions that in the
last few days, the patient has been showing signs of confusion, described as 'not incoherent, but some weird things'.
No reports history of seizures or epilepsy.
Vital signs by EMS: 152/70 heart rate of 95, fingerstick�113
ER VS: 170/87, 95, afebrile
EKG: Sinus tachycardia of 102
PDMP: No recently prescribed medication
Labs: Glucose�109, normal WBCs, sodium, platelets
CT head wo contrast-no acute abnormalities, generalized atrophy
PMH: L breast CA, HTN, CKD, GERD, hypothyroidism, MALDONADO, alcohol use disorder in remission, osteopenia ambulatory dysfunction
PSH: L lumpectomy, partial colectomy
SH: , ambulates with a walker, non-smoker
FH: Noncontributory to current presentation
All: Cefaclor, cephalosporins, clindamycin, hydrocodone, morphine, oxycodone
ROS: Negative for headache.
General: Well developed. In no acute distress.
Cardio: Regular rate and rhythm without murmur. Extremities are without cyanosis or edema.
Neuro:
Mental Status: Awake, intact to name. Poor attention and comprehension. Left hemineglect. Follows simple requests intermittently. Increased processing time. Nonfluent.
Cranial Nerves: Pupils are equally round and reactive to light. Forced left eye deviation. No blink to threat on the left. Mild right facial weakness, mild dysarthria
Motor: Increased motor tone left more than right. Left hemiplegia.
Sensory: Left Silas sensory deficit
Coordination: No tremors myoclonic movement
Gait: Unable to
Assessment and Plan:
I. Acute R MCA syndrome. Differential diagnosis includes simple focal seizure.
II. Mixed encephalopathy
III. History of breast cancer
-Admit to ICU
-STAT IV Tenecteplase 25 mg/kg once. Treatment risks and benefits were discussed with patient's spouse who has agreed to proceed.
-Neuro checks while in the ED � Q15 minutes.
-Maintain euvolemia using 0.9% NaCl.
-Strictly follow I's & O's.
-Avoid antihypertensive medications unless MAP is persistently higher than 130
-Treat persistently elevated MAP>130 with IV Labetalol.
- NPO, especially if the level of arousal is depressed.
-NGT after the 2nd day for nutrition and meds if dysarthria or dysphagia present;
-Maintain elevation of HOB 30-45 degrees.
- Will follow-up CTA/CTP results (pending)
-For any worsening of neurologic condition:
a. STAT head CT
b. STAT neurologic consult for evaluation
c. STAT Neurosurgical consult for evaluation
-MRI brain w/wo maldonado
-SCD/TEDs
I personally reviewed all radiology and labs along with past medical records pertinent to current medical problems. Total time spent in patient care is 60 minutes.
Thank you for allowing us to participate in the care of this patient. We will continue to follow. Please do not hesitate to contact us with any questions or concerns.
Subjective/Objective
Subjective Data
Date of Service: August 12, 2025
Objective Data
Patient Allergies
cefaclor (From Ceclor) Allergy (Verified 09/28/21 22:09)
Anaphylaxis
Cephalosporins Allergy (Verified 09/28/21 22:09)
Rash
clindamycin Allergy (Verified 09/28/21:09)
Anaphylaxis
hydrocodone bitartrate (From Vicodin) Allergy (Verified 09/28/21:09)
Sunburn and skin peeling
morphine Allergy (Verified 09/28/21:09)
Itching
oxycodone (Oxycodone) Allergy (Verified 09/28/21 22:09)
Nausea / Vomiting
CVA Assessment
Onset of Stroke Symptoms
Onset of symptoms known: Yes
Time pt last seen normal is known: Yes
NIH Stroke Score
Level of Consciousness: 0 - Alert
LOC Questions: 1-Answers one correctly
LOC Commands: 2-Performs neither correctly
Best Horizontal Gaze: 2-Total gaze palsy
Visual Carreon: 2=Full hemianopia
Facial Palsy: 1=Minor paralysis
Motor - Right Arm: 4=No movement
Motor - Left Arm: 2=Partial vs. gravity
Motor - Right Le-No movement
Motor - Left Le-Partial vs. gravity
Limb Ataxia: 0-Absent
Sensation: 0-Normal
Best Language: 1-Mild aphasia
Dysarthria: 1-Mild slurring
Extinction and Inattention: 0-No abnormality
NIH Total Score:: 22
Medications
-
Home Medications
�Medication �Instructions �Recorded
citalopram 20 mg tablet (Celexa) 20 mg PO DAILY 08/12/25
levothyroxine 88 mcg tablet 88 mcg PO DAILY 08/12/25
(Synthroid)
lisinopril 10 mg tablet 10 mg PO DAILY 08/12/25
pantoprazole 40 mg tablet,delayed 40 mg PO DAILY 08/12/25
release (Protonix)
Vital Signs and Labs
-
Vital Signs and Labs:
Vital Signs
Temp Pulse Resp BP Pulse Ox
36.8 C 102 19 170/87 98
08/12/25 12:53 08/12/25 13:28 08/12/25 13:28 08/12/25 13:28 08/12/25 13:34
Lab Results
08/12/25 12:54
08/12/25 12:54
PT 14.5 Sec (11.4-14.6) 08/12/25 12:54
INR 1.10 08/12/25 12:54
APTT 29.0 Sec (23.4-35.0) 08/12/25 12:54
Sodium 136 mmol/L (135-145) 08/12/25 12:54
Potassium 4.3 mmol/L (3.5-5.1) 08/12/25 12:54
BUN 12 mg/dl (7-17) 08/12/25 12:54
Glucose 109 mg/dl (70-99) H 08/12/25 12:54
Calcium 9.5 mg/dl (8.4-10.2) 08/12/25 12:54
Home Medications
-
Home Medications
citalopram 20 mg tablet (Celexa) 20 mg PO DAILY 08/12/25
levothyroxine 88 mcg tablet (Synthroid) 88 mcg PO DAILY 08/12/25
lisinopril 10 mg tablet 10 mg PO DAILY 08/12/25
pantoprazole 40 mg tablet,delayed release (Protonix) 40 mg PO DAILY 08/12/25
[2025-08-12 13:06] LABS: Hematocrit 32.5 % (37.0-47.0); Hemoglobin 11.0 g/dL (12.0-16.0); Mean Corp Hgb Conc. 33.8 g/dL (33.0-37.0); Mean Corpuscular Volume 90.0 fL (81.0-99.0); Nucleated Red Blood Cells % 0 %; Platelet Count 410 10^3/uL (130-400); Red Cell Dist. Width 14.9 % (11.5-14.5)
[2025-08-12 13:20] LABS: ALT (SGPT) < 10 U/L (0-35); AST (SGOT) 20 U/L (14-36); Albumin 4.2 g/dl (3.5-5.0); Alkaline Phosphatase 97 U/L (38-126); Blood Urea Nitrogen 12 mg/dl (7-17); Calcium 9.5 mg/dl (8.4-10.2); Carbon Dioxide 27 mmol/L (22-30); Chloride 103 mmol/L (98-107); Glucose 109 mg/dl (70-99); Potassium 4.3 mmol/L (3.5-5.1); Sodium 136 mmol/L (135-145); Total Protein 7.3 g/dl (6.3-8.2); eGFR > 60.00
[2025-08-12 13:21] LABS: INR 1.10; PT 14.5 Sec (11.4-14.6)
[2025-08-12 13:22] LABS: APTT 29.0 Sec (23.4-35.0)
[2025-08-12] MEDS: TNKASE 3.4 MG IV (13:27)
[2025-08-12 13:31] LABS: Troponin I < 0.012 ng/ml
--- NOTE | 2025-08-12 13:32 | ED.CVA ---
History of Present Illness
General
Chief Complaint: CVA/TIA Symptoms
Source: patient, spouse and ambulance crew
Time Seen by Provider: 08/12/25 12:51
Onset of Stroke Symptoms
Onset of symptoms known: Yes
Date of onset of symptoms: 08/12/25
History of Present Illness
History of Present Illness:
Note:
CHIEF COMPLAINT(S)
Sudden onset of weakness and altered mental status.
HISTORY OF PRESENT ILLNESS
The patient is an 87-year-old female who experienced a sudden onset of right-sided weakness and difficulty with speech at approximately 11:40 AM, as observed by her family. The family reported noticing left-sided eye deviation and expressive
aphasia. She has not complained of a headache. Upon assessment, it was noted that there was more pronounced weakness on the left side than the right. Her blood pressure was recorded at 150/70 mmHg and blood glucose was 115 mg/dL. There is no mention
of the patient being on anticoagulant therapy.
ADDITIONAL HISTORY OBTAINED FROM SOURCES OTHER THAN THE PATIENT
According to the family, the patient was normal before the sudden onset of symptoms and they were present with her when the symptoms began.
PHYSICAL EXAM
General: Alert, no acute distress.
Skin: Warm, dry.
Head: Normocephalic, atraumatic.
Neck: Supple, trachea midline.
Eye, Ears, Nose, and Throat: Oral mucosa moist, left-sided eye deviation noted.
Cardiovascular: Normal peripheral perfusion, No edema.
Respiratory: Respirations are non-labored.
Gastrointestinal : Abdomen nondistended.
Back: Normal range of motion, Normal alignment.
Musculoskeletal: Right-sided weakness, more pronounced on the left, normal range of motion and strength on the right.
Neurological: Expressive aphasia, no focal neurological deficit observed on the right side, weakness more pronounced on the left side.
Psychiatric: Cooperative, appropriate mood & affect.
PROBLEM LIST
Acute:
- Sudden right-sided weakness
- Expressive aphasia
- Left-sided eye deviation
PLAN
Arrange for CT scan to evaluate for potential cerebrovascular accident (CVA). Monitor vital signs closely. Prepare for potential thrombolytic therapy if the patient is found to be a candidate after imaging and further evaluation.
DIFFERENTIAL DIAGNOSIS
The Differential Diagnosis includes, in no particular order and is not limited to:
- Cerebrovascular accident (CVA)
- Transient ischemic attack (TIA)
- Intracranial hemorrhage
- Brain tumor
- Metabolic derangement (e.g., hypoglycemia)
- Seizure
- Migraine with aura
- Multiple sclerosis exacerbation
- Subdural hematoma
- Hypertensive encephalopathy
CARE-UPDATE
08/12/25 - 13:23
Patient presented with acute onset of left-sided weakness and incoherence around 10:30 a.m., indicative of a stroke. She had been normal upon waking and was ambulatory with a walker. However, she became non-verbal and immobile on the left side
prompt attempts to communicate. CT scan ruled out hemorrhagic stroke, raising suspicion of an ischemic event due to a clot. Shared decision to administer thrombolytic therapy was discussed, as the treatment could potentially restore cerebral
perfusion if given within the early window, acknowledging a 7% risk of inducing bleeding. The patient has no contraindications for the clot-busting treatment based on current lab results. Family informed and will update once treatment progresses. No
history of seizures, recent surgeries, or significant fall injuries. Family encouraged to communicate any change or new questions.
CARE-UPDATE
08/12/25 - 13:55
TNK administration initiated at 1328 following neurologys recommendation. Family, including and daughter, informed and in agreement with the treatment plan, expressing no reservations.
EKG
My independent EKG interpretation is:
- Rhythm: Science type cardio
- Activation: Left-backed activation
- Notable Intervals: All intervals are within normal limits
- Abnormalities: Non-specific ST segment changes
Disposition:
SUMMARY OF ENCOUNTER
The patient, an 87-year-old female, presented with acute left-sided weakness and left-sided gaze preference. A stroke alert was initiated pre-hospital, and neurology evaluated the patient upon arrival. The decision to administer TNK (tenecteplase)
was made after family consent, considering the patients significant neurologic deficits, timing of the onset, and absence of contraindications. A CT scan showed no intracranial hemorrhage.
DISPOSITION
Admit to the ICU.
ASSESSMENT
The clinical presentation and imaging findings are highly suggestive of an acute ischemic cerebrovascular event, likely due to a clot.
EMERGENCY TREATMENTS ADMINISTERED
TNK (tenecteplase) initiated following neurologys recommendation.
MANAGEMENT OF THE PATIENTS CARE WAS DISCUSSED WITH
Neurology consulted, and management agreed upon with the patients and daughter.
PLAN
Admit the patient to the ICU for continued monitoring and management following the thrombolytic therapy.
INDEPENDENT REVIEW OF LABS AND INTERPRETATION OF TESTS
- My independent review of CBC is normal white blood cell count, hemoglobin 11 g/dL, and platelet count of 410 x 10^9/L.
- My independent review of the INR is normal.
- My independent review of CMP indicates normal results.
- My independent review of blood glucose is 114 mg/dL.
- My independent CT scan interpretation shows no intracranial hemorrhage.
MEDICAL DECISION MAKING
- Number and Complexity of Problems Addressed: Chronic conditions affecting care. Differential diagnosis includes cerebrovascular accident (CVA), transient ischemic attack (TIA), intracranial hemorrhage, and others listed in the differential
diagnosis.
- Data:
- Category 1: Clinical input from her family facilitated understanding of the timing of symptoms.
- Category 3: Discussion of management options including thrombolytic therapy with neurology.
DIAGNOSIS
- Acute Ischemic Stroke, Left-Sided Weakness and Gaze Preference (ICD-10 I63.9)
- Possible seizure
Update patient was reassessed and had a seizure. In light of her eye deviation the question is whether she could be having a seizure. Keppra was ordered by neurology. Admit ICU. In addition, states he called 911 at [phone] and symptoms
started at 11:30 AM
Past History
Past History
ED Past Medical History: GERD, HTN, Hypothyroidism and Other (Bowel Obstruction, Fracture Left foot)
ED Past Surgical History: Bowel resection, Cholecystectomy (possible removed patient unsure) and Other (Multiple joint replacements. Multiple abdominal surgeries, diverticulits, bowel resection, colostomy and colostomy reversal last over 20 years
ago.)
Social History
Tobacco: Former smoker
Alcohol: Occasional
Drug: None
Personal:
Living: with family
Employment: Retired
Family History
Family History: Other (Noncontributory)
Phy Exam
Physical Exam
Physical Exam:
.
Course
Orders/Labs/Results
Orders:
Orders
08/12/25 12:52
Electrocardiogram (*1) Stat
Reason for Study: Other
Other Reason for Exam: neuro symptoms
CT BRAIN PERF STROKE ALERT Urgent
Comment:
Reason For Exam: L gaze preference, L weakness
CT HEAD STROKE ALERT W/o Cont Urgent
Comment:
Reason For Exam: L gaze preference, L weakness
CT HEAD/NECK ANG STROKE ALERT Urgent
Comment:
Reason For Exam: L gaze preference, L weakness
Bedside Glucose- Treatment ONCE
Cardiac Monitoring- Treatment ONCE
EKG- Treatment ONCE
08/12/25 12:54
Complete Blood Count/With Diff Urgent
Comprehensive Metabolic Panel Urgent
PTT Urgent
Prothrombin Time Urgent
Troponin I Urgent
08/12/25 13:02
Tenecteplase [Tnkase] 17 mg Syringe [Syringe Non-Pump] 0 ml IV NOW
Provider explained risk/benefits to patient &/or caregiver?: Yes
08/12/25 13:31
Levetiracetam Injectable [Keppra] 1,000 mg IV NOW STA
08/12/25 13:32
Alcohol Routine
Lipid Profile [Cardiovascular Evaluation] Routine
Magnesium Routine
TSH Reflex To Free T4 Routine
Total CK [Creatine Phosphokinase] Routine
08/12/25 13:37
Ceribell [Rapid Point of Care EEG (ED/ICU ONLY)] Q1H
Indications for use:: Altered Mental Status
08/12/25 13:39
Admit/Transfer Patient As Directed
Co-Sign Provider:
Level of Care: Inpatient admission
Assign to:: ICU
Physician / Group: Marcelo
Diagnosis: Stroke
Reason for Hospitalization: stroke
Expected length of stay greater than two midnights?: Yes
ELOS- Estimated Length of Stay in days: 5
I certify the patient meets the requirements for IP care: Yes
PRN Pain Medication Management As Directed
May give lesser potent ordered pain med per pt: Yes
preference::
Protocol:: Medication orders for pain may be administered in a
manner that supports deferring to patient preference
when the pt is:
- Requesting an ordered lesser potent pain medication.
Least to most potent pain medications are defined
as: acetaminophen < NSAID < tramadol < opioids
(morphine, oxycodone, hydromorphone).
- Requesting a lesser dose of the same medication IF
ORDERED.
- Requesting a less intrusive route of administration
if both routes are prescribed by the provider (PO <
IV).
08/12/25 13:40
diazePAM [Valium Injection] 10 mg .ROUTE .STK-MED ONE
08/12/25 13:53
Electrocardiogram (*1) Routine
Reason for Study: TIA/Stroke
Code Status As Directed
Resuscitation Status: Full Code
Case Management Consult Once
Case Management Consult: Discharge Planning
DIETARY IP CONSULT Routine
Reason for Consult: stroke/TIA
Health And Wellness Sales Consultant Consult Routine
Consulting Provider: Lincoln Starr
Was physician already notified: Yes
Reason for consult: Stroke status post TNK
NEUROLOGY CONSULT Urgent
Consulting Provider: Sade Vargas
Was physician already notified: Yes
Dock Operations Supervisor Urgent
MR Brain Without Contrast Routine
Comment: complete 24 hrs post tenecteplase administration
Reason For Exam: possible stroke, status post tenecteplase
Recent pill cam endoscopy?: No
Acetaminophen [Tylenol] 650 mg PO Q4HPRN PRN
Hemetest Stools As Directed
Comment: hemoccult all stools if patient received tenecteplase
NIH Stroke Scale As Directed
Directions: Other
Comment: NIH stroke Scale to be completed prior to thrombolytic administration, then every 1 hour for 2
hours, then every shift and with change in condition and/or mental status.
Neurological Checks As Directed
Frequency: Per unit guidelines
Additional Instructions:: after start of thrombolytic therapy:
q15min x 2 hrs, q30min x 6 hrs, q1h x 16 hrs, q4h x 24 hrs, then every shift and
with any changes.
Notify MD As Directed
Notify physician if: - Any deterioration, change in neurological status, development of severe headache,
nausea and vomiting, or with any signs of bleeding. (see guidelines for suspected
intracerebral hemorrhage).
- If intracranial hemorrhage is suspected or confirmed by imaging, anticipate need for
osmotic diuretic to maintain euvolemia.
Notify MD As Directed
Notify physician if: Glucose less than 70 or greater than 180.
Anticipate corrective insulin orders.
Notify MD As Directed
Notify physician if: unable to obtain MRI of head within 22-32 hours of tenecteplase administration
- contact Neurology for order for CT of head without contrast
Patient Education As Directed
Type: Stroke education packet
Comment: provide to patient and family
Precautions As Directed
Type of Precautions: Bleeding
Comment: post Bleeding Precaution sign at bedside (if patient received tenecteplase)
Swallow Screening CVA/TIA ONLY As Directed
Comment: NPO until swallow screening completed
If patient FAILS swallow screening:: NPO and Speech consult and aspiration precautions
If patient PASSES swallow screening, diet:: IDDSI 5 Soft & Bite Sized
Thrombolytic Precautions As Directed
Thrombolytic Precautions:: [place] bleeding precautions. Minimize invasive procedures and venipunctures,
avoid IM injections and over-handling patient, and check all puncture sites for
bleeding. Assess the patient and notify provider for signs and symptoms of
internal or serious bleeding, such as changes in vital signs or evidence of blood
in the urine or stool.
Additional instructions: Hemocult all stools.
Apply direct pressure or pressure dressing to any compressible puncture sites.
No ABG sampling or Burton insertion after Tenecteplase administration for 24 hours,
unless directed by the Neurologist/Attending.
Vital Signs As Directed
Frequency: q15m
Call for:: BP greater than 180/105 mmHg or less than 100/60 mmHg
Additional Instructions:: after start of thrombolytic therapy:
q15min x 2 hrs, q30min x 6 hrs, q1h x 16 hrs, q4h x 24 hrs, then every shift and
with any changes.
CR Chest - 2 Views Urgent
Comment:
Reason For Exam: stroke/TIA
Ot Eval And Treat Routine
Physiatry Consult Routine
Consulting Provider: Ulysses Goncalves
Was physician already notified: Yes
Reason for consult: stroke/TIA
Pt Eval And Treat Routine
Activity Level: Bedrest for limited time
Speech Therapy Eval & Treat Routine
08/12/25 13:59
CT Head W/o Iv Contrast Stat
Comment:
Reason For Exam: seizure
08/12/25 14:18
Compression Sleeves [Pneumatic Compression Sleeves] As Directed
Type: Knee high
DX Deep Vein Thrombosis Video Routine
08/12/25 19:30
diazePAM [Valium Injection] 2 mg IV Q6HPRN PRN
08/13/25 06:00
Basic Metabolic Panel IN AM
Cardiovascular Evaluation IN AM
Complete Blood Count/No Diff IN AM
PTT IN AM
Prothrombin Time IN AM
Abnormal Lab Results
08/12/25 08/12/25
12:51 12:54
RBC 3.61 L 10^6/uL
(4.20-5.40)
Hgb 11.0 L g/dL
(12.0-16.0)
Hct 32.5 L %
(37.0-47.0)
RDW 14.9 H %
(11.5-14.5)
Plt Count 410 H 10^3/uL
(130-400)
MPV 10.9 H fL
(7.4-10.4)
Abs Immat Gran (auto) 0.1 H 10^3/uL
(0-0.05)
Immature Gran % 1.0 H %
(0-0.5)
Glucose 109 H mg/dl
(70-99)
POC Glucose 114 H mg/dl
(70-99)
08/12/25 12:54
08/12/25 12:54
Vital Signs
Initial and Last Documented VS:
Initial Vital Signs
Temp Pulse Resp BP Pulse Ox
98.3 F 95 20 123/99 97
08/12/25 12:53 08/12/25 12:53 08/12/25 12:53 08/12/25 12:53 08/12/25 12:53
Last Documented Vital Signs
Temp Pulse Resp BP Pulse Ox
98.7 F 105 21 183/96 95
08/12/25 14:33 08/12/25 14:28 08/12/25 14:28 08/12/25 14:45 08/12/25 14:27
*Pulse Oximetry
SaO2: 98
Oxygen Mode of Delivery: Room air
Patient hypoxic: no
*Critical Care Note
Total Time (30-74mins, 75-104mins- exclusive of procedures): 35 minutes
ED Attending Note
-
Portions of this chart may have been created with voice recognition software.� Occasional wrong word or��sound alike� substitutions may have occurred due to the inherent limitations of voice recognition software.
Discharge Plan
Departure
Patient Disposition: Admit
Date of Disposition: 08/12/25
Time of Disposition: 13:32
Admit to: ICU
Presentation/result/management discussed w/ accepting MD/DO: Hospitalist
Discharge Problem:
Acute cerebrovascular accident (CVA)
Interventions
Interventions:
*Risk Screen - Suicide Last Done: 08/12/25 13:00
*General Assessment Last Done: 08/12/25 12:53
*Neglect/Abuse Screening Last Done: 08/12/25 12:53
*Nursing Disposition Last Done: 08/12/25 15:00
ED- Pulmonary Assessment Last Done: 08/12/25 13:00
ED- Neurological Assessment Last Done: 08/12/25 13:25
ED- Cardiac Assessment Last Done: 08/12/25 13:00
ED Swallowing Screen Last Done: 08/12/25 13:00
Discharge Date and Time
Discharge Date/Time: 08/12/25 15:01
[2025-08-12] MEDS: KEPPRA 1000 MG IV (13:40)
--- NOTE | 2025-08-12 13:41 | EDRN ---
RN left to get keppra, RN came back to pt seizing, under minute seizure. MD brought to bedside.
--- NOTE | 2025-08-12 14:15 | CON.INTV ---
Consultation
Consultation Request
Date/Time Consultation Requested: 08/12/2025 - 1353
Date/Time Consultation Performed: 08/12/2025 - 140
Requesting Provider: Dr. Robertson
Performing Provider: Dr. Starr
Reason for Consultation: s/p TNK
Medical History
-
Chief Complaint: Left-sided weakness and difficulty speaking
History of Present Illness:
85-year-old female with a PMHx of hypothyroidism, diverticulitis, hypertension, history of partial resection of colon, osteoarthritis, GERD, IFG, spondylolisthesis of lumbar region, NAFLD, small bowel obstruction, mixed hyperlipidemia, history of
alcohol dependence now in remission, ambulatory dysfunction, and left-sided breast cancer stage IIa (ER + CO positive, HER2 negative) who presents from home with left-sided weakness and difficulty speaking. Also had left-sided gaze. Symptoms began
around 11:40 AM today on 08/12/2025. Her initial blood glucose was 115. The patient had been woken up this morning feeling in usual state of health. There was no recent falls, injury or bleeding. The patient's been showing signs of confusion over
the last several days. No history of seizures or epilepsy. In the ER she had brain imaging as part of stroke alert, with CT head showing no acute intracranial abnormality, CTA head/neck showing no significant arterial stenosis, no LVO, no
aneurysm, and mild atherosclerotic calcifications of the left carotid bifurcation/proximal ICA with resultant 30% stenosis. Labs showed normal WBC at 7.8, Hb 11, platelet count 410, INR 1.1, creatinine 0.7, and POCT glucose 114. Neurology
consulted, and given concern for an acute right MCA syndrome she was consented for immediate IV TNK. Treatment risks and benefits were discussed first with the patient's spouse who agreed to proceed. In the ER she was given Keppra, and TNK was
administered at 13:27 on 08/12/2025. Patient then admitted to the ICU for further care, and mortar mixer services consulted for additional management/recommendations.
When I saw the patient she was resting in bed, minimally responsive, with Juan and son Froilan both at bedside. Patient currently saturating 100% on 4 L/min nasal cannula, with heart rate 100 and BP 159/79. Patient's never had a stroke
before. 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
PMHx: Hypothyroidism, diverticulitis, hypertension, history of partial resection of colon, osteoarthritis, GERD, IFG, spondylolisthesis of lumbar region, NAFLD, small bowel obstruction, mixed hyperlipidemia, history of incisional hernia, history of
alcohol dependence now in remission, ambulatory dysfunction, left-sided breast cancer stage IIa (ER + CO positive, HER2 negative)
PSHx: Right total knee arthroplasty, reduction and repair of incarcerated incisional hernia with mesh (10/2000), sigmoid colon resection with colostomy (1987), colostomy reversal, left breast lumpectomy and sentinel lymph node biopsy (05/2019)
Past Medical History
Past Medical History: Other (Above as per HPI)
Past Surgical History: Other (Above as per HPI)
Social History
Tobacco: Non-smoker
Alcohol: Former
Drug: None
Family History
Family History: CAD (Mother) and Diabetes (Father)
Allergies / Home Medications
Allergies
Allergy/AdvReac Type Severity Reaction Status Date / Time
cefaclor (From Ceclor) Allergy Anaphylaxis Verified 08/12/25 13:26
Cephalosporins Allergy Rash Verified 08/12/25 13:26
clindamycin Allergy Anaphylaxis Verified 08/12/25 13:26
hydrocodone bitartrate (From Allergy Sunburn Verified 08/12/25 13:26
Vicodin) and skin
peeling
morphine Allergy Itching Verified 08/12/25 13:26
oxycodone (Oxycodone) Allergy Nausea / Verified 08/12/25 13:26
Vomiting
Home Medications
�Medication �Instructions �Recorded �Confirmed �Last Taken �Type
citalopram 20 mg tablet (Celexa) 20 mg PO DAILY 08/12/25 08/12/25 Unknown History
levothyroxine 88 mcg tablet 88 mcg PO DAILY 08/12/25 08/12/25 Unknown History
(Synthroid)
lisinopril 10 mg tablet 10 mg PO DAILY 08/12/25 08/12/25 Unknown History
pantoprazole 40 mg tablet,delayed 40 mg PO DAILY 08/12/25 08/12/25 Unknown History
release (Protonix)
Review of Systems
-
Unable to Obtain full review of systems at this time due to: Acuity
Vitals / Labs / Diagnostic Testing
Vital Signs
Temp Pulse Resp BP Pulse Ox
98.7 F 105 21 216/114 98
08/12/25 14:33 08/12/25 14:28 08/12/25 14:28 08/12/25 14:28 08/12/25 13:34
Lab Data
08/12/25 12:54
08/12/25 12:54
Laboratory Results
08/12/25
12:54
PT 14.5
INR 1.10
APTT 29.0
Diagnostic Testing:
Physical Exam
-
HEENT: Normocephalic and Anicteric
Cardiovascular: S1/S2 and Peripheral Edema (trace LE edema b/l)
Respiratory: Wheeze (negative), Rales (negative), Rhonchi (negative) and Non-Labored Respirations
GI: Soft, Non Distended, Non Tender and Normal Bowel Sounds
Neurology: Tremors (negative), Other (Minimally responsive, although she does awaken to tactile stimuli and then quickly falls back asleep) and Other (Unable to assess for peripheral sensation or motor function, or cranial nerve function; pupils +3
mm bilaterally)
Skin: Warm and Dry
General: Respiratory Distress (negative), Comfortable, Fever (negative) and Chills (negative)
Assessment
-
Assessment: 85-year-old female with a PMHx of hypothyroidism, diverticulitis, hypertension, history of partial resection of colon, osteoarthritis, GERD, IFG, spondylolisthesis of lumbar region, NAFLD, small bowel obstruction, mixed hyperlipidemia,
history of alcohol dependence now in remission, ambulatory dysfunction, and left-sided breast cancer stage IIa (ER + CO positive, HER2 negative) who presents from home with left-sided weakness and difficulty speaking. Also had left-sided gaze.
Symptoms began around 11:40 AM today on 08/12/2025. Her initial blood glucose was 115. The patient had been woken up this morning feeling in usual state of health. There was no recent falls, injury or bleeding. The patient's been showing signs of
confusion over the last several days. No history of seizures or epilepsy. In the ER she had brain imaging as part of stroke alert, with CT head showing no acute intracranial abnormality, CTA head/neck showing no significant arterial stenosis, no
LVO, no aneurysm, and mild atherosclerotic calcifications of the left carotid bifurcation/proximal ICA with resultant 30% stenosis. Labs showed normal WBC at 7.8, Hb 11, platelet count 410, INR 1.1, creatinine 0.7, and POCT glucose 114. Neurology
consulted, and given concern for an acute right MCA syndrome she was consented for immediate IV TNK. Treatment risks and benefits were discussed first with the patient's spouse who agreed to proceed. In the ER she was given Keppra, and TNK was
administered at 13:27 on 08/12/2025. Patient then admitted to the ICU for further care, and mortar mixer services consulted for additional management/recommendations.
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
hernia, history of alcohol dependence now in remission, ambulatory dysfunction, left-sided breast cancer stage IIa (ER + CO positive, HER2 negative)
Impression:
#Left-sided weakness with expressive aphasia with concern for an acute right MCA CVA s/p TNK (administered at 13:27 on 08/12/2025)
#Acute encephalopathy
#History of left-sided breast cancer stage IIa (ER +, CO +, HER2 -)
#Chronic anemia
#Thrombocytosis likely reactive
#GERD
#Non-alcoholic fatty liver disease (NAFLD)
Plan:
- Admit to ICU for q1hr neurochecks and NIHSS q shift
- Permissive hypertension with goal BP <180/105 mmHg
- Neurology consulted and recs appreciated
- Stat CT head for worsening neurological condition with notification to neurology
- Avoid blood thinners until at least >24 hours after TNK assuming that no ICH seen on imaging
- Check MRI brain w/wo luiz
- Check echo with bubble study
- Check lipid panel with goal LDL<70 --> start high intensity statin if needed
- Keep NPO with eventual CERTIFIED PHYSICIAN ASSISTANT eval prior to starting PO diet
- PT/OT
- Maintain SpO2 >92-94% using supplemental O2 if needed
- Maintain MAP>65
- Maintain euglycemia with goal BG 140-180
- TSH is pending; check B12 and RPR
- According to RN, the pt has foul-smelling urine. I will send a UA with reflex to Cx
- Replete electrolytes with K>4, Mg>2
- Trend H/H and transfuse if needed to keep Hb>7g/dL; keep plt>100k
- prn nebulized bronchodilators - not currently bronchospastic
- Incentive spirometer encouraged 10x per hour for at least 4 hrs a day
- DVT ppx: SCDs for now
Continue ICU level of care for this critically ill patient.
Critical care statement: A total of 38 minutes of critical care time was provided for this patient today. This includes management of unstable vital signs, evaluation of the patient at bedside, reviewing the patient's pertinent medical records
including radiographs, microbiology, laboratory evaluations, and discussion with primary team, consultants, pharmacy, nutrition, physical therapy, case management, charge nurse, critical care nursing, and respiratory therapy.
--- NOTE | 2025-08-12 14:52 | EDRN ---
NIHS done at 1358, RN to take pt up to ICU. ICU called and stated she needed a repeat CT due to the seizure. Pt. taken over to CT @1359 and then brought directly up to ICU following the non contrast CT. Security to bring up to ICU.
--- NOTE | 2025-08-12 15:00 | PTCARENOTE ---
Addendum entered by Marizol Burton RN 08/12/25 17:31:
plan for routine EEG per neuro tomorrow; no further seizure activity noted. Mouth bloody on admit, unable to locate source; mouth cleaned and p. frequently redirected not to touch; unable to follow direction; mitts applied.
Original Note:
Received pt. from ER s/p repeat Head CT following seizure activity post TNK admin. In contact w Dr. Vargas prior to pt. arrival for report reading; neuro reported no bleed. Upon arrival, NIH completed w KILN MAINTENANCE; NIH elevated to 27- L leg flaccid,
trace L arm movement, L facial droop, L gaze preference, L side sensory deficit, severe aphasia- see flow sheet. Neuro aware of NIH elevation from ER. SBP elevated >200; ideal BP parameters for SBP 150-170 per neuro. Admin prn IV hydralazine-
see MAR. Full assessment per charting- see flow sheet. @ bedside, updated on plan of care.
--- NOTE | 2025-08-12 15:11 | HPS.HSE ---
Family Physician
-
Family Physician: INTERVIEWE UNKNOWN - PT NOT
Chief Complaint
-
Left side weak
History of Present Illness
85-year-old female who lives independently at home with her with lately family noting some cognitive decline over the last couple of weeks, woke up as usual this morning while they having breakfast noticed around 10:30 that he had
some left-sided weak, and eventually called EMS and was brought to the hospital concern for the acute stroke TNK given while receiving TNK look like she had a witnessed seizure activity.
Patient on my eval Sleepy, is arousable answer question briefly but no much movement of the left extremity. And at the bedside, otherwise according to the prior to the event she was any baseline other than the family noted some
cognitive change lately.
Medical History
Past Medical History
Past Medical History: Reports Other
Additional Past Medical History:
Past medical history and archive reviewed:
Hypertension
GERD
Hypothyroidism
Mood disorder
Diverticulitis
Osteoarthritis
Small bowel loopsShe is on dialysis
Social history: Lives at home with her , no smoking alcohol ambulates with and without assistance
Family history: Reviewed and noncontributory
Past Surgical History: Reports Other
Social History
Unable to obtain full social history at this time due to: Other
Family History
Family History: Other
Allergies / Home Medications
Allergies reflects when Allergies were last updated in [employer].
Home Medications with original date entered in [employer]
Allergy/Medication List:
Allergies
Allergy/AdvReac Type Severity Reaction Status Date / Time
cefaclor (From Ceclor) Allergy Anaphylaxis Verified 08/12/25 13:26
Cephalosporins Allergy Rash Verified 08/12/25 13:26
clindamycin Allergy Anaphylaxis Verified 08/12/25 13:26
hydrocodone bitartrate (From Allergy Sunburn Verified 08/12/25 13:26
Vicodin) and skin
peeling
morphine Allergy Itching Verified 08/12/25 13:26
oxycodone (Oxycodone) Allergy Nausea / Verified 08/12/25 13:26
Vomiting
Home Medications
citalopram 20 mg tablet (Celexa) 20 mg PO DAILY 08/12/25
levothyroxine 88 mcg tablet (Synthroid) 88 mcg PO DAILY 08/12/25
lisinopril 10 mg tablet 10 mg PO DAILY 08/12/25
pantoprazole 40 mg tablet,delayed release (Protonix) 40 mg PO DAILY 08/12/25
Review of Systems
-
Unable to obtain full review of systems at this time due to: Acuity
Physical Exam
Vital Signs
Vital Signs
Temp Pulse Resp BP Pulse Ox
98.7 F 105 21 183/96 95
08/12/25 14:33 08/12/25 14:28 08/12/25 14:28 08/12/25 14:45 08/12/25 14:27
Physical exam is limited.
Physical exam:
General: lethargic, arousable briefly and falls back asleep verbalize few words and low tone of, not in distress and does not follows command full
HEENT: No active discharge, ecchymosis or bruising, moist lips, tongue and mucous membrane.
Eyes: Left gaze appreciated no discharge or red conjunctiva, no nystagmus,
Neck:Supple, no JVD no bruit no goiter.
Respiratory: Normal AP contour and diameter, normal chest wall movement, normal respiratory effort, no respiratory distress,
Lungs: Good air entry bilaterally, no wheezing or rhonchi, no rales or crackles
Heart: S1, S2 regular, normal rate, no added sound.
Gastrointestinal: Positive bowel sounds, soft, nontender, no guarding or rigidity or organomegaly
Musculoskeletal: , no chest wall abnormality or tenderness. All joints and extremities have good range of motion, no muscle tenderness or any joint swelling or tenderness.
Extremities: Mild lower extremity pitting edema, good peripheral pulses, good range of motion
Neurological: Cannot do full neurological exam because of the mentation, withdrawal right extremities and able to lift him up but not much movement in the left extremities especially left upper extremity when he lifted up fall back asleep.
Therefore very hard to do a full exam and assess NIH
Physical Exam
General: Other
Laboratory Results
-
08/12/25 12:54
08/12/25 12:54
Laboratory Results
PT 14.5 Sec (11.4-14.6) 08/12/25 12:54
INR 1.10 08/12/25 12:54
APTT 29.0 Sec (23.4-35.0) 08/12/25 12:54
Total Bilirubin 0.7 mg/dl (0.2-1.3) 08/12/25 12:54
AST 20 U/L (14-36) 08/12/25 12:54
ALT < 10 U/L (0-35) 08/12/25 12:54
Alkaline Phosphatase 97 U/L (38-126) 08/12/25 12:54
Troponin I < 0.012 ng/ml 08/12/25 12:54
CTA head and neck:
CTA Head: No significant arterial stenosis. No large vessel occlusion. No aneurysm. Aerosolized secretions within the left sphenoid sinus.
CTA Neck: No significant arterial stenosis. Mild atherosclerotic calcifications of the left carotid bifurcation/proximal ICA with resultant 30% stenosis by NASCET criteria.
Electronically signed by Heriberto Bennett MD, 08/12/2025 1:[address] brain: Showed no acute abnormality.
EKG: Showed sinus tachycardia rate 11/29/2001, CA 182, QT 365 otherwise nonspecific abnormalities.
Data Reviewed
-
CT Scan: Image Personally Visualized and interpreted, Discussed with Physician and Discussed with Family
Lab Data: Labs Reviewed by me, Discussed with Physician and Discussed with Family
Old Records: Reviewed
Impression/Plan
-
IMPRESSION:
85-year-old female presented with acute left-sided weakness, concerning for acute stroke or TIA, received TNK.
Acute embolic stroke:
Admit to ICU
Discussed with ICU, and ER physician
Get an MRI once patient more stable to complete the workup
No blood draws or any anticoagulation or aspirin for the next 24-hour or even checking lab.
Once more stable PT OT, swallowing screen and swallow eval.
For now keep strict n.p.o.
IV fluid
Hypertension: Hold lisinopril keep pressure on the high side
GERD change Protonix to IV
Hypothyroidism: Check TSH and hold levothyroxine for now if cannot able to take anything orally for the next 5 to the can be changed to IV
All discussed with the in detail at the bedside and expressed understanding all the question answered
CODE STATUS for is a full code.
DVT prophylaxis SCD
PLAN:
--- NOTE | 2025-08-12 15:24 | CM ---
manager water reviewed patient's chart and met with patient and patient's spouse at bedside, patient lives with her spouse in a one story home on their daughter's property, patient was independent with adl's and used a walker with ambulation, patient
did not require oxygen prior to admissions, patient had [facility] visiting nurses in past, patient may need acute rehab.
PCP: Dr. Juan Olguin
Pharmacy: [facility] in [place].
[2025-08-12] MEDS: APRESOLINE 10 MG IV (15:26)
[2025-08-12] MEDS: PROTONIX IV 40 MG IV (16:54)
[2025-08-12] MEDS: NSS 1000 IV (16:54)
--- NOTE | 2025-08-12 17:16 | PTCARENOTE ---
pt. now moving all extremities spontaneously but only to command intermittently; remains confused/difficult to direct. Pt. repeating 'left side,' 'help me find left side.' Pt. w new bruising on upper back area; Dr. Starr to bedside, aware.
Urine on admit noted to be foul smelling; UA sent to lab per orders. Pt.'s son @ bedside, updated on plan of care.
[2025-08-12 17:24] LABS: Urine Character Slightly Cloudy (Clear)
[2025-08-12 17:34] LABS: Urine Squamous Cell 0-2 /LPF (Few)
[2025-08-12 17:35] LABS: Urine White Cell 26-30 /HPF (0-5)
--- NOTE | 2025-08-12 19:00 | PTCARENOTE ---
Assumed care. Patient received lying in bed, awake and alert. She is oriented to person, self and event, but she is confused to time and place. NIHSS performed with delvis WOODS. NIHSS 11 at this time. She is able to read words and name items
pictured. However, it is noted that she is favoring her right side for vision--it appears as if she has vision loss on her left side. She has some difficulty with finding what circumstances are wrong in the picture. Slight left facial droop. No
tongue deviation. Some right sided gaze. She ZHOU, slightly weaker BLEs. BUEs with some very slight drift, no drift of BLEs. Good hand grasps. Bilateral soft mitts in place due to confusion and removing oxygen and leads, checked and resecured. Bruise
noted on mid upper back, small hematoma left upper arm. BBS essentially clear, right lung more diminished than left, bilateral bases with fine crackles, resps shallow. S1S2 tachy. SR-ST on CM with frequent pac's and occassional PVCs. Noted to be in
paroxysmal Afib at times. Abdomen soft. Right AC IV site WDL. Left SL site with some scant bloody drainage at insertion site. No other bleeding noted. Old blood noted in mouth, oral care rendered. HOB up 30 degrees. Bed in low and locked position,
bed alarm on, call dean in reach. Unable to reposition as patient is turning self in bed as is comfortable. Mag noted at 1.3. Chayo ORTIZ notified, new orders received for Mag 2gm, given. S/p TNK neuro checks per order.
[2025-08-12 19:04] LABS: HDL Cholesterol 74 mg/dl; LDL Cholesterol, Calculated 126 mg/dl; Magnesium 1.3 mg/dl (1.6-2.3); Very Low Density Lipoprotein 19 mg/dl (0-30)
[2025-08-12] MEDS: KEPPRA 500 MG IV (19:33)
--- NOTE | 2025-08-12 20:10 | PTCARENOTE ---
Patient is restless and moaning. Appears uncomfortable. When asked if she is in pain, she says yes. When asked where, she acknowledges her knees and mouth. Chayo ORTIZ notified and new orders received for IV Tylenol, given. Oral care with moistened
swab, lip care. Currently on 4L/nc oxygen. Attempted on RA, however her saturation dropped to 90%. Replaced on 2L/nc and sats improved. Repositioned. States she feels the need to void. Attempted bedpan and patient did not void. Pads placed for
incontinence.
[2025-08-12] MEDS: MAGNESIUM SULFATE 50 IV (20:19)
[2025-08-12] MEDS: OFIRMEV 100 IV (20:22)
--- NOTE | 2025-08-12 21:00 | PTCARENOTE ---
Bladder scanned. Highest amount recorded was 191cc. Did not straight cath at this time.
--- NOTE | 2025-08-12 22:45 | PTCARENOTE ---
Addendum entered by Yesi Carrera RN 08/13/25 01:05:
Blood cultures were drawn from peripheral lines L and R since unable to stick for lab draws s/p TNK.
Original Note:
Concern that some of patient's confusion may be attributed to UTI? Notified Chayo ORTIZ. New orders received. Labwork drawn for Lactic acid and BC x 2 sets. ABx ordered and given after labwork draw.
--- NOTE | 2025-08-12 23:30 | PTCARENOTE ---
No marked change in patient's physical or neurological assessment. Continues to have restlessness despite interventions to make Greer comfortable. Afebrile. VSS. Follows commands.
[2025-08-12] MEDS: AZACTAM 1000 MG IV (23:37)
[2025-08-12] MEDS: STERILE WATER FOR INJECTION 10 ML IV (23:37)
[2025-08-13] VITALS (56 sets, daily range): BP systolic 100–170; BP diastolic 42–95; PULSE 75; O2SAT 96; BMI 28.7
[2025-08-13] MEDS: AZACTAM IV (01:06)
--- NOTE | 2025-08-13 01:30 | PTCARENOTE ---
Patient HNV since start of shift. Bladder scanned for 389cc. Straight cath'd for 400cc, tolerated. Complete cares given, CHG cloth bath, linens changed.
[2025-08-13] MEDS: OFIRMEV 100 IV (02:46)
[2025-08-13] MEDS: NSS 1000 IV (04:28)
--- NOTE | 2025-08-13 04:30 | PTCARENOTE ---
Patient appears to be sleeping intermittently. Restless when awake. Upper back ecchymosis seems to have spread since the beginning of the shift. Chayo ORTIZ aware. Am labs drawn. No other change in patient's physical assessment. Neuro assessment
stable. VSS. Continues to have Paroxysmal Afib on CM with SR with frequent pac's.
[2025-08-13 05:02] LABS: Hematocrit 26.3 % (37.0-47.0); Hemoglobin 9.2 g/dL (12.0-16.0); Mean Corp Hgb Conc. 35.0 g/dL (33.0-37.0); Mean Corpuscular Volume 90.7 fL (81.0-99.0); Platelet Count 337 10^3/uL (130-400); Red Cell Dist. Width 14.6 % (11.5-14.5)
[2025-08-13 05:08] LABS: APTT 30.9 Sec (23.4-35.0); INR 1.26; PT 16.0 Sec (11.4-14.6)
[2025-08-13 05:18] LABS: Blood Urea Nitrogen 14 mg/dl (7-17); Calcium 9.1 mg/dl (8.4-10.2); Carbon Dioxide 23 mmol/L (22-30); Chloride 106 mmol/L (98-107); Estimated Creatinine Clearance 44 ml/min; Glucose 90 mg/dl (70-99); HDL Cholesterol 66 mg/dl; LDL Cholesterol, Calculated 117 mg/dl; Magnesium 2.1 mg/dl (1.6-2.3); Potassium 4.0 mmol/L (3.5-5.1); Sodium 136 mmol/L (135-145); Very Low Density Lipoprotein 12 mg/dl (0-30); eGFR > 60.00
[2025-08-13 05:31] LABS: Troponin I 0.060 ng/ml
[2025-08-13 06:06] LABS: Vitamin B12 265 pg/ml (239-931)
--- NOTE | 2025-08-13 07:00 | PTCARENOTE ---
Report given verbally to oncoming shift, Marizol WOODS. Bedside rounds complete with NIHSS assessment. Questions answered.
[2025-08-13] MEDS: NSS (PRESERVATIVE FREE) 10 ML IV (07:52)
[2025-08-13] MEDS: STERILE WATER FOR INJECTION 10 ML IV ×3 (07:52→23:05)
[2025-08-13] MEDS: AZACTAM 1000 MG IV ×3 (07:52→23:05)
[2025-08-13] MEDS: PROTONIX IV 40 MG IV (07:52)
--- NOTE | 2025-08-13 08:00 | PTCARENOTE ---
Received pt @ change of shift. [facility] completed w off-going RN; scored 4- for mild L facial droop; inability to report correct age/month; drowsiness; otherwise initial stroke symptoms resolved- see flow sheet. Drowsy, awakens to verbal stim; ox2,
required reorientation to time; confused/restless @ x's; redirection improving. Denies pain. Post thrombolytic checks completed per orders- see flow sheet. Sinus arrhythmia on monitor w PACs. Spo2 99% on RA. +BS, abd round/obese; strict NPO
status maintained pending ASSISTANT MANAGER TRAINEE eval. Difficulty urinating; prn BS/SC- see flow sheet. #18 L AC patent, ecchymosis above IV; not associated w line. #20 R FA w NSS @ 80mL/hr. EEG in progress @ this time; no seizure activity noted. Pt. assisted w
active repositioning, ZHOU, generalized weakness. B/L mitts in place- see flow sheet. Safe environment maintained.
[2025-08-13] MEDS: DESENEX/MITRAZOL/ZEASORB 1 APPLIC TOPICAL ×2 (08:01→20:06)
--- NOTE | 2025-08-13 08:29 | W.PN.NEURO.1 ---
Addendum entered and electronically signed by Edy Jackson MD 08/13/25 10:42:
Studies reviewed.
I have personally examined the patient. I reviewed and agree with the DRINK BOX MECHANIC's Note.
My addenda:
Awake, alert, interactive. No acute distress.
Speech intact.
Follows 2-step requests w/ difficulty. No tremor.
Extra-ocular movements grossly intact.
Facial movements full and symmetric. Hearing intact to normal conversational volume.
Normal UE movements bilaterally.
Neck: full ROM.
Chest: no dyspnea
Heart: no JVD
Ext: (-) Clubbing, (-) Cyanosis, (-) Edema
IMPRESSIONS/RECOMMENDATIONS:
Abrupt onset of left-sided weakness presumed to be secondary to acute ischemic stroke for which the patient received tenecteplase. Currently, patient exhibits right sided weakness.
Patient currently has lack of recall for recent events suggesting the possibility of vascular dementia
Start aspirin 81 mg by mouth or 300 mg by rectum if the patient is unable to take by mouth, starting 24 hours after tenecteplase
We will follow MRI of brain results
Start cyanocobalamin IM, changing over to by mouth when possible
Rehabilitation evaluations and treatment
Goal of normotension starting after 1300 hrs. today
When patient is able to take by mouth, initiate atorvastatin
Medical educational materials to be provided
D/W patient
All questions answered.
Will continue to follow pending results.
Original Note:
Today's Communication / Plan
-
� goal blood pressure over the next 24 hours after TNK would be less than 180/105 mmHg
� check MRI of the brain
� check EEG as planned
� hold all antiplatelets, OAC meds, DOAC meds, heparinoids for next 24 hours after TNK, may start aspirin 81 mg tonight or if unable to take po may take 300 AL
� goal LDL <70, current LDL 117, start atorvastatin 80 mg at bedtime when patient is able to take PO
� goal blood glucose levels for patient would be less than 180 mg/dL
� Speech, PT, OT evaluations needed
� neurochecks and NIHSS per unit guidelines
� Vitamin B12 265, start cyanocobalamin 1,000 mcg daily when able to take po
� medical educational materials will be provided
Neuro Assessment/Plan
Assessment
85-year-old right-handed woman with past medical history of HTN, GERD, Hypothyroidism who presented to [facility] on 08/12/2025 with left-sided weakness s/p TNK at 1300.
Vital signs by EMS: 152/70 heart rate of 95, fingerstick�113
Labs: Cholesterol 195, LDL 117, B12 265
CT head wo contrast-no acute abnormalities, generalized atrophy
CT perfusion:
CBF <30% Volume: 0 mL (estimate of ischemic core)
Tmax >6 second Volume: 0 mL (critically hypoperfused tissue)
CBF/Tmax Mismatch Volume: 0 mL (ischemic penumbra)
CBF/Tmax Mismatch Ratio: None
Hypoperfusion Index (Tmax >10s/Tmax >6s): N/A (predicts rate of collateral flow, infarct growth, and clinical outcome)
CBV Index (rCBV in Tmax >6s): N/A
CTA Head: No significant arterial stenosis. No large vessel occlusion. No aneurysm. Aerosolized secretions within the left sphenoid sinus.
CTA Neck: No significant arterial stenosis. Mild atherosclerotic calcifications of the left carotid bifurcation/proximal ICA with resultant 30% stenosis by NASCET criteria.
Assessment:
I. Acute R MCA syndrome. Differential diagnosis includes simple focal seizure.
II. Mixed encephalopathy
III. History of breast cancer
Plan
� goal blood pressure over the next 24 hours after TNK would be less than 180/105 mmHg
� check MRI of the brain
� check EEG as planned
� hold all antiplatelets, OAC meds, DOAC meds, heparinoids for next 24 hours after TNK, may start aspirin 81 mg tonight or if unable to take po may take 300 AL
� goal LDL <70, current LDL 117, start atorvastatin 80 mg at bedtime when patient is able to take PO
� goal blood glucose levels for patient would be less than 180 mg/dL
� Speech, PT, OT evaluations needed
� neurochecks and NIHSS per unit guidelines
� Vitamin B12 265, start cyanocobalamin 1,000 mcg daily when able to take po
� medical educational materials will be provided
Subjective/Objective
Subjective Data
Date of Service: August 13, 2025
No acute overnight events. Patient remains confused and unable to provide any meaningful history. Currently getting an EEG. Patient states 'I feel back to normal.' Not oriented to month or year. Has notable RUE/RLE drift.
Objective Data
Vital Signs
Temp Pulse Resp BP Pulse Ox
98.7 F 74 14 148/65 98
08/13/25 04:30 08/13/25 07:28 08/13/25 07:28 08/13/25 07:28 08/13/25 07:00
Lab Results
08/13/25 04:41
08/13/25 04:41
PT 16.0 Sec (11.4-14.6) H 08/13/25 04:41
INR 1.26 08/13/25 04:41
APTT 30.9 Sec (23.4-35.0) 08/13/25 04:41
Sodium 136 mmol/L (135-145) 08/13/25 04:41
Potassium 4.0 mmol/L (3.5-5.1) 08/13/25 04:41
BUN 14 mg/dl (7-17) 08/13/25 04:41
Glucose 90 mg/dl (70-99) 08/13/25 04:41
Calcium 9.1 mg/dl (8.4-10.2) 08/13/25 04:41
Phosphorus 3.7 mg/dl (2.5-4.5) 08/13/25 04:41
LDL Cholesterol, Calc 117 mg/dl 08/13/25 04:41
Vitamin B12 265 pg/ml (824-931) 08/13/25 04:41
Patient Allergies
cefaclor (From Ceclor) Allergy (Verified 08/12/25 13:26)
Anaphylaxis
Cephalosporins Allergy (Verified 08/12/25 13:26)
Rash
clindamycin Allergy (Verified 08/12/25 13:)
Anaphylaxis
hydrocodone bitartrate (From Vicodin) Allergy (Verified 08/12/25 13:)
Sunburn and skin peeling
morphine Allergy (Verified 08/12/25 13:)
Itching
oxycodone (Oxycodone) Allergy (Verified 08/12/25 13:)
Nausea / Vomiting
Physical Exam
-
General: Comfortable and Appears Stated Age
HEENT: Normocephalic, Atraumatic and Anicteric
Neck: Full Range of Motion
Respiratory: No Dyspnea
Cardiac: No JVD
GI: Non-distended
Skin: Unremarkable
Extremities: No Clubbing, No Cyanosis and No Edema
Psych: Confused
Extended Neurological Exam
Mood & Affect: Mood Unremarkable
Attention Span & Concentration: Awake, Alert, Interactive, Severe Difficulty with 2 Step Request and Other (Not oriented to month or year)
Memory: Reduced, Vague and Incomplete Historian
Tremor: Hand Tremor Absent and Head Tremor Absent
Speech: Quality Unremarkable, Quantity Unremarkable and Rate of Production Unremarkable
Cranial Nerve II: Left Eye: Visual Carreon Intact
Cranial Nerve II: Right Eye: Visual Carreon Intact
Cranial Nerves III, IV, : Extraocular Movement: Extraocular Movement Full in all Directions
Cranial Nerve VII: Facial Symmetry: Normal Facial Symmetry
Cranial Nerve VIII: Hearing: Unremarkable Hearing to Normal Conversational Volume
Pronator Drift: Drift in Right Upper Extremity and Drift in Right Lower Extremity
Coordination: Csvaju-fwye-tynlqs Testing Unremarkable
Data Reviewed
-
CT-Perfusion: Report Reviewed and Image Reviewed
CT Head: Report Reviewed and Image Reviewed
MRI Head: Ordered
Carotid Ultrasound: Ordered
Medical Test Reports: Report Reviewed
Labs: Report Reviewed
Lipid Profile: Report Reviewed
Reviewed with: Physician and Patient
Old Records: Summarized
[2025-08-13] MEDS: KEPPRA 500 MG IV (08:52)
--- NOTE | 2025-08-13 09:13 | W.PN.HOSP.TC ---
Today's Communication/Plan
-
EKG to monitor
Flomax, hope we start PT soon to avoid retention
MRI
Resume lisinopril
Assessment / Plan
Assessment / Plan
Physical Exam:-
General: Confused with mitts. No Apparent Distress
HEENT: Normocephalic, Atraumatic and Moist Mucous Membranes
Respiratory: Clear to Auscultation; Negative Wheezes, Rales or Rhonchi
Cardiac: S1S2
GI: Soft, Normal Bowel Sounds, non tender.
Musculoskeletal: No Clubbing, No Cyanosis and No Edema
Neuro: Awake, Alert , oriented to surroundings at times, she followed commands. She was able to raise left rm and leg against gravity
Psych; calm, apparent dementia
85-year-old female presented with acute left-sided weakness, concerning for acute stroke or TIA, received TNK.
Acute embolic stroke:
Left-sided weakness with expressive aphasia with concern for an acute right MCA CVA s/p TNK (administered at 13:27 on 08/12/2025)
She seems to have good clinical improvement
Order MRI
No blood draws or any anticoagulation or aspirin for the next 24-hour or even checking lab.
Once more stable PT OT, swallowing screen and swallow eval.
For now keep strict n.p.o.
IV fluid
Appreciate ICU & Neurology help
Acute urinary retention
hope it will improve with starting PT and avoiding bed confinement
Order Flomax
# Mild troponin
Will trend
No chest pain
Repeat EKG
Likely due to non ischemic myocardial injury
# Mild drop in HGB, likely dilutional
No evidence of bleeding
CBC in AM to monitor
Hypertension:
Resume lisinopril after permissive HTN
GERD change Protonix to IV
Hypothyroidism: c/w Synthroid when allowed
All discussed with the in detail at the bedside and expressed understanding all the question answered
CODE STATUS for is a full code.
DVT prophylaxis SCD
Total time spent to see the patient, examine the patient, review data and lab results, discuss treatment plan with patient, nursing staff around 55 minutes
Anticipated Discharge: > 48 hours
Subjective/Interval History
-
Date of Service: August 13, 2025
Still confused, with Mitts
Able to move left side
Urinary retention, needed straight cath
Objective Data
-
Labs:
Laboratory Results
08/13/25
04:41
WBC 10.3
Hgb 9.2 L
Hct 26.3 L
Plt Count 337
PT 16.0 H
INR 1.26
APTT 30.9
Sodium 136
Potassium 4.0
Chloride 106
Carbon Dioxide 23
BUN 14
Creatinine 0.8
Glucose 90
Calcium 9.1
Vital Signs:
Vital Signs
Temp Pulse Resp BP Pulse Ox
98.5 F 73 20 147/72 98
08/13/25 07:48 08/13/25 08:28 08/13/25 08:28 08/13/25 08:28 08/13/25 07:00
I&O
08/12/25 08/13/25 08/14/25
06:59 06:59 06:59
Intake Total 1370 / 1450 240 / 240
Output Total 1050 / 1050
Balance 320 / 400 240 / 240
--- NOTE | 2025-08-13 10:40 | W.PN.INTV ---
Today's Communication / Plan
Recommendations
- Follow-up urine cultures
- Await MRI and EEG
- Scrap Separator service will sign off once patient is transferred out of ICU
Assessment
-
Assessment: 85-year-old female with a PMHx of hypothyroidism, diverticulitis, hypertension, history of partial resection of colon, osteoarthritis, GERD, IFG, spondylolisthesis of lumbar region, NAFLD, small bowel obstruction, mixed hyperlipidemia,
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 Also had left-sided gaze.
Symptoms began around 11:40 AM today on 08/12/2025. Her initial blood glucose was 115. The patient had been woken up this morning feeling in usual state of health. There was no recent falls, injury or bleeding. The patient's been showing signs of
confusion over the last several days. No history of seizures or epilepsy. In the ER she had brain imaging as part of stroke alert, with CT head showing no acute intracranial abnormality, CTA head/neck showing no significant arterial stenosis, no
LVO, no aneurysm, and mild atherosclerotic calcifications of the left carotid bifurcation/proximal ICA with resultant 30% stenosis. Labs showed normal WBC at 7.8, Hb 11, platelet count 410, INR 1.1, creatinine 0.7, and POCT glucose 114. Neurology
consulted, and given concern for an acute right MCA syndrome she was consented for immediate IV TNK. Treatment risks and benefits were discussed first with the patient's spouse who agreed to proceed. In the ER she was given Keppra, and TNK was
administered at 13:27 on 08/12/2025. Patient then admitted to the ICU for further care, and laundry machine mechanic services consulted for additional management/recommendations.
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
08/13 overview: Patient awake alert lying in bed. Current MAP of 92, respiratory rate 16, heart rate 74. Not requiring any pressors, saturating 96% on room air, normal saline infusing at 80 mL/h.
Impression:
#Left-sided weakness with expressive aphasia with concern for an acute right MCA CVA s/p TNK (administered at 13:27 on 08/12/2025)
#Acute encephalopathy
#?Seizure like activity post TNK infusion
#History of left-sided breast cancer stage IIa (ER +, NE +, HER2 -)
#Chronic anemia
#Thrombocytosis likely reactive
#GERD
#Non-alcoholic fatty liver disease (NAFLD)
#?UTI
Plan:
- Admitted to ICU for q1hr neurochecks and NIHSS q shift
- Permissive hypertension with goal BP <180/105 mmHg
- Neurology consulted and recs appreciated. NIHSS down to 2 this AM
- Await MRI
- Avoid blood thinners until at least >24 hours after TNK assuming that no ICH seen on imaging
- Check echo with bubble study
- Check lipid panel with goal LDL<70 --> start high intensity statin if needed
- Keep NPO with eventual ACQUISITIONS ANALYST eval prior to starting PO diet
- PT/OT
- Maintain SpO2 >92-94% using supplemental O2 if needed
- Maintain MAP>65
- Maintain euglycemia with goal BG 140-180
- TSH is pending; check B12 and RPR
- Brief seizure like activity post TNK. Received Keppra, currently on hold. EEG pending. Neurology service on case.
- Replete electrolytes with K>4, Mg>2
- Trend H/H and transfuse if needed to keep Hb>7g/dL; keep plt>100k
- prn nebulized bronchodilators - not currently bronchospastic
- Incentive spirometer encouraged 10x per hour for at least 4 hrs a day
- DVT ppx: SCDs for now
Continue ICU level of care for this critically ill patient.
Critical care statement: A total of 38 minutes of critical care time was provided for this patient today. This includes management of unstable vital signs, evaluation of the patient at bedside, reviewing the patient's pertinent medical records
including radiographs, microbiology, laboratory evaluations, and discussion with primary team, consultants, pharmacy, nutrition, physical therapy, case management, charge nurse, critical care nursing, and respiratory therapy.
Subjective Dataa
Subjective Data
Date of Service:
Date of Service: August 13, 2025
Subjective:
Patient comfortably lying in bed in no acute distress.
Review of Systems
Genitourinary: Other (All 14 systems reviewed and negative except as stated above in the history of present illness.)
Objective Data
Data Reviewed
Vital Signs / I&O / Oxygen:
Vital Signs
Temp Pulse Resp BP Pulse Ox
98.5 F 73 20 147/72 95
08/13/25 07:48 08/13/25 08:28 08/13/25 08:28 08/13/25 08:28 08/13/25 09:12
Intake and Output
08/12/25 08/13/25 08/14/25
06:59 06:59 06:59
Intake Total 1370 / 1450 240 / 240
Output Total 1050 / 1050
Balance 320 / 400 240 / 240
SaO2 95
Nasal Cannula flow liters per 2
minute
Physical Exam
General: Comfortable
HEENT: Normocephalic (Faint facial droop noted)
Cardiovascular: S1-S2
Respiratory: Clear
GI: Soft and Non Distended
Neurology: Awake and Alert
Skin: Warm
Labs/Micro/Reports
Lab Data
08/13/25 04:41
08/13/25 04:41
Laboratory Results
08/12/25 08/13/25
12:54 04:41
PT 14.5 16.0 H
INR 1.10 1.26
APTT 29.0 30.9
--- NOTE | 2025-08-13 12:38 | PTCARENOTE ---
Addendum entered by Marizol Burton RN 08/13/25 12:39:
RESEARCH ASSOCIATE POLICY to bedside this AM for eval; further orders received post eval to advance diet. Holding on meal intake until MRI completion.
Original Note:
pt. reassessed, no changes since previous assessment. Plan for MRI @ 1330. Pt.'s daughter @ bedside, updated.
--- NOTE | 2025-08-13 12:44 | PTOTSP ---
Speech Therapy Evaluation:
Pt with chronic risk factors of dysphagia (GERD, cognitive decline), acutely compounded by concern for CVA, UTI, and seizure. At bedside pt initially lethargic with brief periods of alertness maintained. As evaluation progressed, noted improvement
in mentation and acceptance of PO. Pt did not demonstrate any overt s/sx of aspiration across trials. CXR without pneumonia, WBC WNL, and pt passed 3oz swallow screen.
Recommend:
1. Cautious diet initiation of IDDSI Level 6 (soft and bite sized solids) and thin liquids
2. Medications crushed in puree
3. Strict aspiration precautions
4. 1:1 supervision and assistance with intake. Hold PO if pt not awake, alert, accepting
5. Low threshold to d/c oral diet if concerns for aspiration arise
6. REEFER TRUCK DRIVER to follow to monitor tolerance of diet and to determine if pt would benefit from additional language/cognitive testing pending results of MRI
[2025-08-13] MEDS: ZESTRIL 10 MG PO (12:51)
--- NOTE | 2025-08-13 13:12 | EEG.RPT ---
Electroencephalogram Report
Recording
Date of EE08/13/25
Type of EEG: Routine
Length of EEG recordin minutes
Done with Video Recording: Yes
Patient Status: Inpatient
Recording Conditions: Awake and Drowsy
Hyperventilation Performed: No
Photic Stimulation Performed: Yes
Report
LESS THAN 1 HOUR EEG REPORT
LESS THAN 1 HOUR EEG INTERPRETATION:
Mildly to moderately abnormal study for age based on low amplitude and generalized slowing demonstrated bihemispherically equally, even for age.
CLINICAL CORRELATION:
Although normative values not been established for a person of this advanced age the patient�s mild asymmetry of the background suggests that this study was suggestive of mild to moderate bihemispheric, left worse than right, cortical dysfunction.
No epileptiform features were demonstrated.
If concerns remain regarding epilepsy, prolonged monitoring may be of assistance.
Clinical correlation is advised.
METHODS:
A 21-channel digital electroencephalogram (EEG) was performed at the bedside in the ICU. The 10/20 international system of electrode placement was used with ECG and lateral/vertical eye movements recorded. The [employer] quantitative EEG analysis
system was performed
IMPRESSION(S):
Quality of study
Fair
Background
Low amplitude
Anterior-posterior voltage gradient differentiation: Fair
Theta frequency maximal background demonstrated, typically delta
Sleep
Drowsiness present
Hyperventilation
Not performed
Photic Stimulation
Failed to activate the record
ECG
Normal rhythm
Abnormal Activity
None
--- NOTE | 2025-08-13 14:29 | CM ---
Apparent R sided CVA s/p TNK 08/12/25, L sided weakness with expressive aphasia, NPO until DIRECTOR OF GUIDANCE prior to PO intake, EEG completed. Awaiting MRI. Confusion. In mitts, PT/OT consult when able. Discharge POC: TBD. Await therapy recommendations.
--- NOTE | 2025-08-13 16:39 | PTCARENOTE ---
Pt. RN transported via bed to MRI and back to room 3366 per orders; no events during transport. Results reviewed by Wedger, Dr. Mueller, and further orders received to downgrade to tele. ECHO completed @ bedside on arrival back to unit. Pt.
assisted x1 w RW OOB into BR and then into chair; gait steady, gen weakness, redirection required. Neuro checks maintained per orders- see flow sheet. Mitts removed. Dinner ordered by family. Family remains @ bedside, updated on plan of care.
Chair alarm active; call dean in reach.
--- NOTE | 2025-08-13 21:14 | PTCARENOTE ---
report given to floor, transferred to rm [id number] via WC on monitor accomp by self
[2025-08-13] MEDS: TYLENOL 650 MG PO (23:05)
[2025-08-13] MEDS: MELATONIN 5 MG PO (23:39)
[2025-08-14] VITALS (7 sets, daily range): BP systolic 109–140; BP diastolic 44–73; PULSE 69; O2SAT 98; BMI 28.7
--- NOTE | 2025-08-14 00:30 | PTCARENOTE ---
Patient downgraded from ICU. Admitted for CVA. Admitting NIH 27. Received TNK. Patient arrived to floor with Liz RN at bedside. NIH 4. Patient is alert to name and location but is disoriented to and current month. Patient moves all
extremities. Slight L sided facial droop noted.
Patient c/o L sided chest pain, could not describe and could not rate. VS were taken. REPAIR SUPERVISOR notified and assessed patient at bedside. When asked again, patient denied any pain. Patient is confused at baseline. PRN tylenol was given. Will continue to
monitor overnight.
Patient became restless, stating she 'needs to get to heaven.' Continued to set off bed alarm. REPAIR SUPERVISOR notified. Melatonin given. Will continue to monitor overnight.
[2025-08-14] MEDS: LOW STRENGTH ASPIRIN 81 MG PO (07:30)
[2025-08-14] MEDS: CELEXA 20 MG PO (07:31)
[2025-08-14] MEDS: NSS (PRESERVATIVE FREE) 10 ML IV (07:31)
[2025-08-14] MEDS: ZESTRIL 10 MG PO (07:31)
[2025-08-14] MEDS: SENOKOT 8.6 MG PO ×2 (07:31→20:15)
[2025-08-14] MEDS: PROTONIX IV 40 MG IV (07:32)
[2025-08-14] MEDS: AZACTAM 1000 MG IV ×3 (07:32→23:19)
[2025-08-14] MEDS: STERILE WATER FOR INJECTION 10 ML IV ×3 (07:35→23:20)
[2025-08-14] MEDS: DESENEX/MITRAZOL/ZEASORB 1 APPLIC TOPICAL ×2 (07:36→20:22)
[2025-08-14] MEDS: CYANOCOBALAMIN 1000 MCG IM (08:21)
[2025-08-14 08:33] LABS: Hematocrit 24.1 % (37.0-47.0); Hemoglobin 8.1 g/dL (12.0-16.0); Mean Corp Hgb Conc. 33.6 g/dL (33.0-37.0); Mean Corpuscular Volume 90.6 fL (81.0-99.0); Platelet Count 294 10^3/uL (130-400); Red Cell Dist. Width 14.8 % (11.5-14.5)
[2025-08-14 08:56] LABS: Troponin I 0.058 ng/ml
--- NOTE | 2025-08-14 09:09 | W.PN.HOSP.TC ---
Today's Communication/Plan
-
PT/OT
Repeat CBC in am
f/w neurology recommendations
Assessment / Plan
Assessment / Plan
Physical Exam:-
General: Confused with mitts. No Apparent Distress
HEENT: Normocephalic, Atraumatic and Moist Mucous Membranes
Respiratory: Clear to Auscultation; Negative Wheezes, Rales or Rhonchi
Cardiac: S1S2
GI: Soft, Normal Bowel Sounds, non tender.
Musculoskeletal: No Clubbing, No Cyanosis and No Edema
Neuro: Awake, Alert , oriented to surroundings at times, she followed commands. She was able to raise left rm and leg against gravity
Psych; calm, apparent dementia
85-year-old female presented with acute left-sided weakness, concerning for acute stroke or TIA, received TNK.
# Left-sided weakness with expressive aphasia with concern for an acute right MCA CVA s/p TNK (administered at 13:27 on 08/12/2025), possible TIA?
She seems to have good clinical improvement
MRI no stroke
Speech ok for oral diet
Started on aspirin.
Appreciate ICU & Neurology help
Acute urinary retention
hope it will improve with starting PT and avoiding bed confinement
Ordered Flomax
# Mild troponin
Repeat is less
No chest pain
Repeat EKG, no changes.
Echo showed normal LVEF.
Likely due to non ischemic myocardial injury
# Drop in HGB, likely anemia of chronic disease, acute blood loss anemia( IV acccess)
No evidence of active bleeding
CBC in AM to monitor
Hypertension:
Resume lisinopril after permissive HTN
GERD change Protonix to IV
Hypothyroidism: c/w Synthroid when allowed
All discussed with the in detail at the bedside and expressed understanding all the question answered
CODE STATUS for is a full code.
DVT prophylaxis SCD
Total time spent to see the patient, examine the patient, review data and lab results, discuss treatment plan with patient, nursing staff around 55 minutes
Anticipated Discharge: 24 - 48 hours
Subjective/Interval History
-
Date of Service: August 14, 2025
No complaints
Objective Data
-
Labs:
Laboratory Results
08/14/25
07:24
WBC 8.2
Hgb 8.1 L
Hct 24.1 L
Plt Count 294
Sodium Pending
Potassium Pending
Chloride Pending
Carbon Dioxide Pending
BUN Pending
Creatinine Pending
Glucose Pending
Calcium Pending
Vital Signs:
Vital Signs
Temp Pulse Resp BP Pulse Ox
98.3 F 69 16 109/44 96
08/14/25 07:20 08/14/25 07:20 08/14/25 07:20 08/14/25 07:20 08/14/25 07:20
I&O
08/13/25 08/14/25 08/15/25
06:59 06:59 06:59
Intake Total 1370 / 1450 1120 / 1120
Output Total 1050 / 1050 525 / 525
Balance 320 / 400 595 / 595
--- NOTE | 2025-08-14 09:23 | W.PN.NEURO.1 ---
Addendum entered and electronically signed by Edy Jackson MD 08/14/25 11:51:
Studies reviewed.
I have personally examined the patient. I reviewed and agree with the INDUSTRIAL THERAPIST's Note.
My addenda:
Awake, alert, interactive. No acute distress.
Speech intact. Able to name objects without difficulty. Odd content to speech. Correctly identifies location.
Follows 2-step requests w/ mild difficulty. No tremor.
Extra-ocular movements grossly intact.
Facial movements full and symmetric. Hearing intact to normal conversational volume.
Normal UE movements bilaterally.
Neck: full ROM.
Chest: no dyspnea
Heart: no JVD
Ext: (-) Clubbing, (-) Cyanosis, (-) Edema
IMPRESSIONS/RECOMMENDATIONS:
Abrupt onset of left-sided weakness presumed to be secondary to acute ischemic stroke for which the patient received tenecteplase. MRI of brain failed to demonstrate this abnormality. It is unclear if the patient has underlying dementia or if her
current examination represents another alternative etiology
Started aspirin 81 mg by mouth lifelong due to possible nonvisualized stroke
Start cyanocobalamin 1000 mcg by mouth daily
Rehabilitation evaluations and treatment
Goal of normotension
initiate atorvastatin 80 mg daily
Continue thiamine for completeness
Will continue to follow pending results.
Original Note:
Documented by User: Brenna Barrera NP 08/14/25 10:55
Today's Communication / Plan
-
� goal normotension
� continue aspirin 81 mg daily
� goal LDL <70, current LDL 117, continue atorvastatin 80 mg at bedtime
� goal blood glucose levels for patient would be less than 180 mg/dL
� Speech, PT, OT evaluations needed
� Vitamin B12 265, start cyanocobalamin 1,000 mcg daily
Neuro Assessment/Plan
Assessment
85-year-old right-handed woman with past medical history of HTN, GERD, Hypothyroidism who presented to [facility] on 08/12/2025 with left-sided weakness s/p TNK at 1300.
Vital signs by EMS: 152/70 heart rate of 95, fingerstick�113
Labs: Cholesterol 195, LDL 117, B12 265
CT head wo contrast 08/12/2025: no acute abnormalities, generalized atrophy
CT perfusion 08/12/2025:
CBF <30% Volume: 0 mL (estimate of ischemic core)
Tmax >6 second Volume: 0 mL (critically hypoperfused tissue)
CBF/Tmax Mismatch Volume: 0 mL (ischemic penumbra)
CBF/Tmax Mismatch Ratio: None
Hypoperfusion Index (Tmax >10s/Tmax >6s): N/A (predicts rate of collateral flow, infarct growth, and clinical outcome)
CBV Index (rCBV in Tmax >6s): N/A
CTA Head 08/12/2025: No significant arterial stenosis. No large vessel occlusion. No aneurysm. Aerosolized secretions within the left sphenoid sinus.
CTA Neck 08/12/2025: No significant arterial stenosis. Mild atherosclerotic calcifications of the left carotid bifurcation/proximal ICA with resultant 30% stenosis by NASCET criteria.
Brain MRI 08/13/2025: No acute intracranial abnormality noted.
EEG 08/13/2025: generalized slowing demonstrated bihemispherically equally
Labs: Cholesterol 195, LDL 117, B12 265
Assessment:
abrupt onset of left-sided weakness with expressive aphasia with concern for an acute right MCA CVA s/p TNK (administered at 13:27 on 08/12/2025) unclear etiology considering brain MRI no acute intracranial abnormalities and EEG negative for seizure
activity and complete resolution of symptoms. Current exam suggestive of vascular dementia?
Plan
� goal blood pressure over the next 24 hours after TNK would be less than 180/105 mmHg
� check MRI of the brain
� check EEG as planned
� hold all antiplatelets, OAC meds, DOAC meds, heparinoids for next 24 hours after TNK, may start aspirin 81 mg tonight or if unable to take po may take 300 FL
� goal LDL <70, current LDL 117, start atorvastatin 80 mg at bedtime when patient is able to take PO
� goal blood glucose levels for patient would be less than 180 mg/dL
� Speech, PT, OT evaluations needed
� neurochecks and NIHSS per unit guidelines
� Vitamin B12 265, start cyanocobalamin 1,000 mcg daily
� medical educational materials will be provided
Subjective/Objective
Subjective Data
Date of Service: August 14, 2025
No acute overnight events. Patient appears confused. Not oriented to place, month or year.
Objective Data
Vital Signs
Temp Pulse Resp BP Pulse Ox
98.3 F 69 16 109/44 96
08/14/25 07:20 08/14/25 07:20 08/14/25 07:20 08/14/25 07:20 08/14/25 07:20
Lab Results
08/14/25 07:24
PT 16.0 Sec (11.4-14.6) H 08/13/25 04:41
INR 1.26 08/13/25 04:41
APTT 30.9 Sec (23.4-35.0) 08/13/25 04:41
Sodium 136 mmol/L (135-145) 08/13/25 04:41
Potassium 4.0 mmol/L (3.5-5.1) 08/13/25 04:41
BUN 14 mg/dl (7-17) 08/13/25 04:41
Glucose 90 mg/dl (70-99) 08/13/25 04:41
Calcium 9.1 mg/dl (8.4-10.2) 08/13/25 04:41
Phosphorus 3.7 mg/dl (2.5-4.5) 08/13/25 04:41
LDL Cholesterol, Calc 117 mg/dl 08/13/25 04:41
Vitamin B12 265 pg/ml (239-931) 08/13/25 04:41
Patient Allergies
cefaclor (From Ceclor) Allergy (Verified 08/12/25 13:26)
Anaphylaxis
Cephalosporins Allergy (Verified 08/12/25 13:26)
Rash
clindamycin Allergy (Verified 08/12/25 13:26)
Anaphylaxis
hydrocodone bitartrate (From Vicodin) Allergy (Verified 08/12/25 13:26)
Sunburn and skin peeling
morphine Allergy (Verified 08/12/25 13:26)
Itching
oxycodone (Oxycodone) Allergy (Verified 08/12/25 13:26)
Nausea / Vomiting
Physical Exam
-
General: Comfortable and Appears Stated Age
HEENT: Normocephalic, Atraumatic and Anicteric
Neck: Full Range of Motion
Respiratory: No Dyspnea
Cardiac: No JVD
GI: Non-distended
Skin: Unremarkable
Extremities: No Clubbing, No Cyanosis and No Edema
Psych: Confused
Extended Neurological Exam
Mood & Affect: Mood Unremarkable
Attention Span & Concentration: Awake, Alert, Interactive, Severe Difficulty with 2 Step Request and Other (Not oriented to month or year)
Memory: Reduced, Vague and Incomplete Historian
Tremor: Hand Tremor Absent and Head Tremor Absent
Speech: Quality Unremarkable, Quantity Unremarkable and Rate of Production Unremarkable
Cranial Nerve II: Left Eye: Visual Carreon Intact
Cranial Nerve II: Right Eye: Visual Carreon Intact
Cranial Nerves III, IV, : Extraocular Movement: Extraocular Movement Full in all Directions
Cranial Nerve VII: Facial Symmetry: Normal Facial Symmetry
Cranial Nerve VIII: Hearing: Unremarkable Hearing to Normal Conversational Volume
Pronator Drift: No Drift in Upper Extremities and No Drift in Lower Extremities
Coordination: [id number]-cvvt-[id number] Testing Unremarkable

Documented by User: Edy Jackson MD 08/14/25 11:45
Neuro Assessment/Plan
Plan
� goal blood pressure over the next 24 hours after TNK would be less than 180/105 mmHg
� hold all antiplatelets, OAC meds, DOAC meds, heparinoids for next 24 hours after TNK, may start aspirin 81 mg tonight or if unable to take po may take 300 FL
� goal LDL <70, current LDL 117, start atorvastatin 80 mg at bedtime when patient is able to take PO
� goal blood glucose levels for patient would be less than 180 mg/dL
� Speech, PT, OT evaluations needed
� neurochecks and NIHSS per unit guidelines
� Vitamin B12 265, start cyanocobalamin 1,000 mcg daily
� medical educational materials will be provided
Past History
Past History
ED Past Medical History: GERD, HTN, Hypothyroidism and Other (Bowel Obstruction, Fracture Left foot, vitamin B12 deficiency)
ED Past Surgical History: Bowel resection, Cholecystectomy (possible removed patient unsure) and Other (Multiple joint replacements. Multiple abdominal surgeries, diverticulits, bowel resection, colostomy and colostomy reversal last over 20 years
ago.)
Social History
Tobacco: Former smoker
Alcohol: Occasional
Drug: None
Personal:
Living: with family
Employment: Retired
Family History
Family History: Other (Noncontributory)
Medications
-
Medications:
Generic Name Dose Route Start Last Admin
Trade Name Freq PRN Reason Stop Dose Admin
Acetaminophen 650 mg 08/12/25 13:53 08/13/25 23:05
Acetaminophen 325 Mg Tablet PO 09/09/25 13:52 650 mg
Q4HPRN PRN Administration
MALDONADO, mild pain, or temp >100.4F
Aspirin 81 mg 08/14/25 08:00 08/14/25 07:30
Aspirin 81 Mg Chewable Tablet PO 09/11/25 07:59 81 mg
DAILY ANA Administration
Atorvastatin Calcium 80 mg 08/14/25 18:00
Atorvastatin (Lipitor) 80 Mg Tablet PO 09/11/25 17:59
QPM ANA
Aztreonam 1,000 mg 08/12/25 23:45 08/14/25 07:32
Aztreonam 1,000 Mg/10 Ml Vial IV 1,000 mg
Q8 ANA Administration
Citalopram Hydrobromide 20 mg 08/14/25 08:00 08/14/25 07:31
Citalopram 20 Mg Tablet PO 09/11/25 07:59 20 mg
DAILY ANA Administration
Cyanocobalamin 1,000 mcg 08/14/25 08:00 08/14/25 08:21
Cyanocobalamin (1000 Mcg/Ml) 1 Ml Vial IM 09/11/25 07:59 1,000 mcg
DAILY ANA Administration
Diazepam 2 mg 08/12/25 19:30
Diazepam 10 Mg/2 Ml Inj IV 09/09/25 19:29
Q6HPRN PRN
seizure
Lisinopril 10 mg 08/13/25 12:00 08/14/25 07:31
Lisinopril 10 Mg Tablet PO 09/10/25 11:59 10 mg
DAILY ANA Administration
Miconazole Nitrate 0 applic 08/13/25 08:00 08/14/25 07:36
Miconazole Powder Bottle TOPICAL 09/10/25 07:59 1 applic
BID ANA Administration
Pantoprazole Sodium 40 mg 08/12/25 16:00 08/14/25 07:32
Pantoprazole Sodium 40 Mg/10 Ml Vial IV 09/09/25 15:59 40 mg
DAILY ANA Administration
Sennosides 8.6 mg 08/14/25 08:00 08/14/25 07:31
Sennosides (Senokot) 8.6 Mg Tablet PO 09/11/25 07:59 8.6 mg
BID ANA Administration
Sodium Chloride 0 flush 08/12/25 15:00
Sodium Chloride 0.9% (Flush) Syringe IV 09/09/25 14:59
PER PROTOCOL ANA
Sodium Chloride 10 ml 08/13/25 08:00 08/14/25 07:31
Sodium Chloride 0.9% (Preservative Free) 10 Ml Vial IV 09/10/25 07:59 10 ml
DAILY ANA Administration
Sterile Water 10 ml 08/12/25 23:45 08/14/25 07:35
Sterile Water For Injection 10 Ml Vial IV 09/09/25 23:44 10 ml
Q8H ANA Administration
[2025-08-14 09:39] LABS: Blood Urea Nitrogen 15 mg/dl (7-17); Calcium 8.9 mg/dl (8.4-10.2); Carbon Dioxide 23 mmol/L (22-30); Chloride 105 mmol/L (98-107); Estimated Creatinine Clearance 50 ml/min; Glucose 67 mg/dl (70-99); Potassium 4.0 mmol/L (3.5-5.1); Sodium 133 mmol/L (135-145); eGFR > 60.00
--- NOTE | 2025-08-14 10:51 | CM ---
Addendum entered by Oumou Massey 08/14/25 14:05:
CM spoke with patient daughter at length. Reviewed options, SNF, personal care, continued aides, PT/OT and home health. PAC data provided for Medicare.gov and information on a place for mom. Patient daughter states that in the recent past she had
[facility] private aides but her parents fired the aide. Patient daughter would like to continue with [facility] if possible as they already had a relationship with that provider. Patient daughter to be available tomorrow to work with therapy to collaborate
and understand recommendations.
Patient daughter would like to have referral for [facility]; PT/OT and cognitive, social insurance specialist vs SNF. Daughter Yadi is thinking about options and will update CM about choices. CM will continue to follow for discharge planning needs.
Plan; home with [facility]/aides vs SNF; pending medical treatment plan/ family choices.
Original Note:
Patient seen at bedside on . Patient observed resting, PT recommendation is home with VN, OT SNF vs home with home health. CM will continue to follow and will reach out to family to review options for discharge. Pending medical treatment
planning needs. CM will continue to follow for discharge planning needs.
Plan; home with VN vs SNF
[2025-08-14 14:48] LABS: Syphilis/T. pallidum Ab Reflex Negative (Negative)
[2025-08-14] MEDS: LIPITOR 80 MG PO (16:58)
[2025-08-14] MEDS: ATIVAN 0.25 MG PO (20:15)
[2025-08-14] MEDS: MELATONIN 5 MG PO (23:20)
[2025-08-15 03:27] VITALS: BP 131/58
[2025-08-15] MEDS: SYNTHROID 88 MCG PO (05:26)
[2025-08-15 07:20] VITALS: BP 109/73
[2025-08-15] MEDS: NSS (PRESERVATIVE FREE) 10 ML IV (08:31)
[2025-08-15] MEDS: LOW STRENGTH ASPIRIN 81 MG PO (08:31)
[2025-08-15] MEDS: STERILE WATER FOR INJECTION 10 ML IV (08:31)
[2025-08-15] MEDS: PROTONIX IV 40 MG IV (08:31)
[2025-08-15] MEDS: AZACTAM 1000 MG IV (08:31)
[2025-08-15] MEDS: CELEXA 20 MG PO (08:31)
[2025-08-15] MEDS: ZESTRIL 10 MG PO (08:31)
[2025-08-15] MEDS: SENOKOT PO (08:32)
[2025-08-15] MEDS: CYANOCOBALAMIN 1000 MCG IM (08:32)
[2025-08-15] MEDS: DESENEX/MITRAZOL/ZEASORB 1 APPLIC TOPICAL ×2 (08:32→19:48)
--- NOTE | 2025-08-15 09:17 | W.PN.HOSP.TC ---
Today's Communication/Plan
-
Stop laxatives and antibiotics
repeat blood work today
Likely discharge today
Assessment / Plan
Assessment / Plan
Physical Exam:-
General: Confused with mitts. No Apparent Distress
HEENT: Normocephalic, Atraumatic and Moist Mucous Membranes
Respiratory: Clear to Auscultation; Negative Wheezes, Rales or Rhonchi
Cardiac: S1S2
GI: Soft, Normal Bowel Sounds, non tender.
Musculoskeletal: No Clubbing, No Cyanosis and No Edema
Neuro: Awake, Alert , oriented to surroundings at times, she followed commands. She was able to raise left rm and leg against gravity
Psych; calm, apparent dementia
85-year-old female presented with acute left-sided weakness, concerning for acute stroke or TIA, received TNK.
# Left-sided weakness with expressive aphasia with concern for an acute right MCA CVA s/p TNK (administered at 13:27 on 08/12/2025), possible TIA?
She seems to have good clinical improvement
MRI no stroke
Speech ok for oral diet
Started on aspirin, statin.
neurology alos started IM vitamin B12, will change to oral
Appreciate ICU & Neurology help
# Acute diarrhea
from AB + laxatives
will hold ABx and laxatives
Abd exam is normal. No pain
# Cognitive decline
likely dementia, could be Alzheimer or vascular
seems to progress lately
Daughter is healthcare analyst, private healthcare analyst.
Consulted psych based on family request
Acute urinary retention
hope it will improve with starting PT and avoiding bed confinement
Ordered Flomax
# Mild troponin
Repeat is less
No chest pain
Repeat EKG, no changes.
Echo showed normal LVEF.
Likely due to non ischemic myocardial injury
# Drop in HGB, likely anemia of chronic disease, acute blood loss anemia( IV access)
No evidence of active bleeding but noted bruising on upper back
CBC in AM to monitor
Hypertension:
Resume lisinopril after permissive HTN
GERD change Protonix to IV
Hypothyroidism: c/w Synthroid when allowed
All discussed with the in detail at the bedside and expressed understanding all the question answered
CODE STATUS for is a full code.
DVT prophylaxis SCD
Total time spent to see the patient, examine the patient, review data and lab results, discuss treatment plan with patient, daughter, nursing staff around 55 minutes
Anticipated Discharge: Today
Subjective/Interval History
-
Date of Service: August 15, 2025
No chest pain\\
No sob
No fevers
Objective Data
-
Vital Signs:
Vital Signs
Temp Pulse Resp BP Pulse Ox
98.0 F 70 16 109/73 98
08/15/25 07:20 08/15/25 08:31 08/15/25 07:20 08/15/25 08:31 08/15/25 07:20
I&O
08/14/25 08/15/25 08/16/25
06:59 06:59 06:59
Intake Total 1120 / 1120 1680 / 1680
Output Total 525 / 525 325 / 325
Balance 595 / 595 1355 / 1355
[2025-08-15 10:29] LABS: Hematocrit 25.5 % (37.0-47.0); Hemoglobin 8.8 g/dL (12.0-16.0); Mean Corp Hgb Conc. 34.5 g/dL (33.0-37.0); Mean Corpuscular Volume 88.5 fL (81.0-99.0); Platelet Count 348 10^3/uL (130-400); Red Cell Dist. Width 14.6 % (11.5-14.5)
--- NOTE | 2025-08-15 10:44 | PN.CDI ---
Addendum entered and electronically signed by Mandi Melton MD 08/15/25 10:59:
UTI
Original Note:
CDI
- -
CDI:
Physician Documentation Request
Admit Date: 08/12/25 13:59
Dear Doctor Geronimo,
Please review the following and provide your response in the progress notes.
Clinical Indicators:
Pt admitted with Left-sided weakness with expressive aphasia with concern for an acute right MCA CVA s/p TNK possible TIA?
[employer] Consultant consult, ' - According to RN, the pt has foul-smelling urine. I will send a UA with reflex to Cx...'
[employer] Consultant progress note 08/13, ' - Follow-up urine cultures...#?UTI...'
Progress notes 08/13-08/15, ' Acute urinary retentionhope it will improve with starting PT and avoiding bed confinement Ordered Flomax ...'
08/12/25
17:04
Urine Clarity Slightly cloudy
Leukocyte Esterase Rfl 3+ A
Urine RBC 3-6 A
Urine WBC (Reflex) 26-30 A
Urine Bacteria (Reflex) Moderate A
08/12/25 17:04 Urine Culture - Final
Urine Escherichia coli
Please provide a diagnosis for the above findings:
UTI
UTI ruled out urinary retention only
Other ( please specify)
Use of terms such as suspected, likely, concern for, or probable (associated with a specific diagnosis that is being evaluated, monitored, or treated as if it exists) are acceptable and can be coded in the inpatient setting, when documented at the
time of discharge.
Thank you,
Kristyn Mejia RN
CDI Specialist
[place] [facility]
Please use your independent medical judgment in providing your response.
--- NOTE | 2025-08-15 10:52 | PN.CDI ---
Addendum entered and electronically signed by Mandi Melton MD 08/15/25 11:24:
Metabolic Encephalopathy /Dementia with Behavioral disturbances
Original Note:
CDI
- -
CDI:
Physician Documentation Request
Admit Date: 08/12/25 13:59
Dear Doctor Geronimo,
Please review the following and provide your response in the progress notes.
Clinical Indicators:
Pt admitted with Left-sided weakness with expressive aphasia with concern for an acute right MCA CVA s/p TNK possible TIA?
Documented per industrial management teacher consult, ' #Acute encephalopathy..'
Neurology consult, ' . Mixed encephalopathy....'
Pt care note @ 1716, ' pt. now moving all extremities spontaneously but only to command intermittently; remains confused/difficult to direct....'
Pt care note 2245 08/12, ' Concern that some of patient's confusion may be attributed to UTI? ...'
Pt care note 08/13 @ 0800, ' reorientation to time; confused/restless @ x's; redirection improving.... B/L mitts in place..'
Progress note 08/15 , ' Cognitive decline likely dementia, could be Alzheimer or vascular seems to progress lately ...'
Based on the above, could you clarify in the Progress Notes and Discharge Summary which, if any of the following, is the most likely etiology of the confusion/altered mental status.
Metabolic Encephalopathy /Dementia with Behavioral disturbances
Dementia with Behavioral disturbances
Other ( please specify)
Use of terms such as suspected, likely, concern for, or probable (associated with a specific diagnosis that is being evaluated, monitored, or treated as if it exists) are acceptable and can be coded in the inpatient setting, when documented at the
time of discharge.
Thank you,
Kristyn Mejia RN
CDI Specialist
[place] [facility]
Please use your independent medical judgment in providing your response.
[2025-08-15 11:19] LABS: Blood Urea Nitrogen 13 mg/dl (7-17); Calcium 9.2 mg/dl (8.4-10.2); Carbon Dioxide 26 mmol/L (22-30); Chloride 104 mmol/L (98-107); Estimated Creatinine Clearance 50 ml/min; Glucose 91 mg/dl (70-99); Potassium 3.8 mmol/L (3.5-5.1); Sodium 134 mmol/L (135-145); eGFR > 60.00
--- NOTE | 2025-08-15 11:59 | W.PN.NEURO.1 ---
Today's Communication / Plan
-
Vitamin B12 265, start cyanocobalamin 1,000 mcg daily
Lifelong aspirin 81 mg daily
Neuro Assessment/Plan
Assessment
85-year-old right-handed woman with past medical history of HTN, GERD, Hypothyroidism who presented to [facility] on 08/12/2025 with left-sided weakness s/p TNK at 1300.
Vital signs by EMS: 152/70 heart rate of 95, fingerstick�113
Labs: Cholesterol 195, LDL 117, B12 265
CT head wo contrast 08/12/2025: no acute abnormalities, generalized atrophy
CT perfusion 08/12/2025:
CBF <30% Volume: 0 mL (estimate of ischemic core)
CTA Head 08/12/2025: No significant arterial stenosis. No large vessel occlusion. No aneurysm. Aerosolized secretions within the left sphenoid sinus.
CTA Neck 08/12/2025: No significant arterial stenosis. Mild atherosclerotic calcifications of the left carotid bifurcation/proximal ICA with resultant 30% stenosis by NASCET criteria.
Brain MRI 08/13/2025: No acute intracranial abnormality noted.
EEG 08/13/2025: generalized slowing demonstrated bihemispherically equally
Labs: Cholesterol 195, LDL 117, B12 265
Assessment:
abrupt onset of left-sided weakness with expressive aphasia with concern for an acute right MCA CVA s/p TNK (administered at 13:27 on 08/12/2025) unclear etiology considering brain MRI no acute intracranial abnormalities and EEG negative for seizure
activity and complete resolution of symptoms.
Unclear if the patient experienced a significant TIA or somatizations secondary to dementia
Plan
Goal of normotension
Initiated atorvastatin 80 mg
Vitamin B12 265, start cyanocobalamin 1,000 mcg daily
Lifelong aspirin 81 mg daily
Consideration as outpatient for neuropsychological testing
Will follow as outpatient
Subjective/Objective
Subjective Data
Date of Service: August 15, 2025
Objective Data
Vital Signs
Temp Pulse Resp BP Pulse Ox
36.7 C 70 16 109/73 98
08/15/25 07:20 08/15/25 08:31 08/15/25 07:20 08/15/25 08:31 08/15/25 07:20
Lab Results
08/15/25 10:21
08/15/25 10:21
PT 16.0 Sec (11.4-14.6) H 08/13/25 04:41
INR 1.26 08/13/25 04:41
APTT 30.9 Sec (23.4-35.0) 08/13/25 04:41
Sodium 134 mmol/L (135-145) L 08/15/25 10:21
Potassium 3.8 mmol/L (3.5-5.1) 08/15/25 10:21
BUN 13 mg/dl (7-17) 08/15/25 10:21
Glucose 91 mg/dl (70-99) 08/15/25 10:21
Calcium 9.2 mg/dl (8.4-10.2) 08/15/25 10:21
Phosphorus 3.7 mg/dl (2.5-4.5) 08/13/25 04:41
LDL Cholesterol, Calc 117 mg/dl 08/13/25 04:41
Vitamin B12 265 pg/ml (239-931) 08/13/25 04:41
Patient Allergies
cefaclor (From Ceclor) Allergy (Verified 08/12/25 13:26)
Anaphylaxis
Cephalosporins Allergy (Verified 08/12/25 13:26)
Rash
clindamycin Allergy (Verified 08/12/25 13:26)
Anaphylaxis
hydrocodone bitartrate (From Vicodin) Allergy (Verified 08/12/25 13:26)
Sunburn and skin peeling
morphine Allergy (Verified 08/12/25 13:26)
Itching
oxycodone (Oxycodone) Allergy (Verified 08/12/25 13:26)
Nausea / Vomiting
Data Reviewed
-
MRI Head: Report Reviewed
Reviewed with: Physician and Nurse Practioner
Old Records: Summarized
[2025-08-15 12:15] VITALS: BP 152/82
--- NOTE | 2025-08-15 13:26 | CS.PSYCHR ---
Consult Summary - Psychiatry
-
pt seen by me, interviewed daughter as well. consultation requested due to acute CVA, depression, agitation, wants to
85 yo womand admitted for acute CVA. Received tenecteplase, had some improvement in symptoms, but has been intermittantly agitated and distraught calling out to have god take her.
Has been on citalopram for many years, according to daughter, doing ok until two years ago when her twin sister . The two were very close, and pt has not been the same since her . Lives with and daughter's family, has been crying
wanting to join sister. Pt denies any thoughts of suicide ('It would be a sin') is spiritism and prays the rosary for a quick .
has three children and several grandchildren. family is close (niece and daughter visiting today)
Daughter is concerned about whether pt will have difficulty with going to rehab due to cognitive decline, unfamiliar surroundings, might prefer her to come home (she is setting up inhome services.) Has been sleeping only fair, often takes excedrin
PM to help.
Pt is spotty historian, but says she has had a good life, good (at one point tells me he is , at another point asks me if I am her father.) Able to say she is at [facility], but later looks out window and says 'I don't know
where I am.'
States she prays the rosary, able to name types of mysteries which are said at the end of a decade (joyful, sorrowful, glorious) but cannot name any of them.(such as Nativity, Annunciation etc.)
Seen sitting up in chair, propped up. Alert, but trouble with orientation as mentioned, Unable to say why she is here or how long she has been here. Able to name niece and daughter. sobbing at times saying she just wants God to take her, but cannot
say why except that she misses her twin sister very much.
Impression: underlying dementia complicated by post stroke delirium, underlying grief at loss of twin
Rec: Would shift citalopram to escitalopram 20 mg (celexa to lexapro) for more potency fewer side effects
Stop excedrin PM (anticholinergic)
Remeron 7.5 mg hs for sleep
No need for 1:1
--- NOTE | 2025-08-15 13:35 | PTOTSP ---
Speech Language Pathology
Pt seen for dysphagia tx. Currently on IDDSI Level 6 solids/thin liquids. RN noted coating on tongue. DISTILLERY MANAGER unable to remove any with toothbrush. Question thrush, and MD notified. Seen with P.O. trials of thin liquids and regular solids.
Adequate mastication, bolus formation, and A-P transit noted with no oral residue. No overt signs of aspiration.
Recommend:
(1) Upgrade to regular solids/thin liquids
(2) General aspiration precautions
(3) Meds as tolerated
(4) DISTILLERY MANAGER to continue to follow
--- NOTE | 2025-08-15 14:27 | CM ---
Chart reviewed. Discussed w/ patient's daughter about d/c plan. Therapy rec SNF. Per daughter, she was given caregiver information and [facility] information yesterday and did speak w/ Macy. Daughter stated she did reach out to [employer] and awaiting call back regarding caregiver availability. Daughter does not want patient going to SNF. Plan is for patient to d/c home w/ caregivers and home care services.
Hospitalist had plans to possibly d/c today, however, daughter is requesting to not d/c patient today as there is no plan in place for patient to d/c home yet. Updated hospitalist who stated she can d/c patient tomorrow, made hospitalist aware that
daughter is still working on ensuring a safe d/c plan and awaiting caregiver availability
Plan: Home w/ caregivers once arranged and home care services
[2025-08-15 15:20] VITALS: BP 130/59
[2025-08-15] MEDS: LIPITOR 80 MG PO (17:39)
[2025-08-15 19:37] VITALS: BP 161/72
[2025-08-15] MEDS: MELATONIN 5 MG PO (19:47)
[2025-08-15] MEDS: ATIVAN 0.25 MG PO (19:47)
[2025-08-15 22:38] VITALS: BP 125/63
[2025-08-16] VITALS (7 sets, daily range): BP systolic 122–168; BP diastolic 50–87
[2025-08-16] MEDS: SYNTHROID 88 MCG PO (05:37)
[2025-08-16] MEDS: LOW STRENGTH ASPIRIN 81 MG PO (07:57)
[2025-08-16] MEDS: LEXAPRO 10 MG PO (07:57)
[2025-08-16] MEDS: DESENEX/MITRAZOL/ZEASORB 1 APPLIC TOPICAL ×2 (07:58→20:15)
[2025-08-16] MEDS: ZESTRIL 10 MG PO (07:58)
--- NOTE | 2025-08-16 08:53 | W.PN.HOSP.TC ---
Today's Communication/Plan
-
d/w daughter, plan to have home set up with a interior plant caretaker, hoping to discharge Wednesday
Assessment / Plan
Assessment / Plan
Physical Exam:-
General: doing well, pleasant. No Apparent Distress
HEENT: Normocephalic, Atraumatic and Moist Mucous Membranes
Respiratory: Clear to Auscultation; Negative Wheezes, Rales or Rhonchi
Cardiac: S1S2
GI: Soft, Normal Bowel Sounds, non tender.
Musculoskeletal: No Clubbing, No Cyanosis and No Edema
Neuro: Awake, Alert , oriented to surroundings at times, she followed commands. Non-focal.
Psych; calm, apparent dementia
85-year-old female presented with acute left-sided weakness, received TNK.
# Left-sided weakness with expressive aphasia with concern for an acute right MCA CVA s/p TNK (administered at 13:27 on 08/12/2025), possible TIA. d/w neurology, possible TIA, cant ruled it out.
She seems to have good clinical improvement
MRI no stroke
Speech ok for oral diet
Started on aspirin, statin.
Started on Thiamine also, recommend out patient follow- up with Geropsych.
neurology : started IM vitamin B12, now on oral
Appreciate ICU & Neurology help
# Urinary tract infection, finish course of treatment. Discussed with daughter, history of recurrent UTI. Started on Hiprex.
# Acute diarrhea
from AB + laxatives
resolved.
# Cognitive decline
c/w dementia, could be Alzheimer or vascular
seems to progress lately
Daughter is interior plant caretaker, private interior plant caretaker.
Consulted psych based on family request meant to change from Celexa to Lexapro, add low-dose mirtazapine for night
Acute urinary retention
Improved with starting PT
# Mild troponin
Repeat is less
No chest pain
Repeat EKG, no changes.
Echo showed normal LVEF.
Likely due to non ischemic myocardial injury
# Drop in HGB, likely anemia of chronic disease, acute blood loss anemia( IV access)
No evidence of active bleeding but noted bruising on upper back, likely self-inflicted after receiving TNK and rubbing her back against the mattress, discussed with daughter,
Hemoglobin stable. Started on oral iron.
Hypertension:
Resume lisinopril after permissive HTN
GERD change Protonix to IV
Hypothyroidism: c/w Synthroid when allowed
All discussed with the in detail at the bedside and expressed understanding all the question answered
CODE STATUS for is a full code.
DVT prophylaxis SCD
Total time spent to see the patient, examine the patient, review data and lab results, discuss treatment plan with patient, daughter, nursing staff around 55 minutes
Anticipated Discharge: Within 24 hours
Subjective/Interval History
-
Date of Service: August 16, 2025
No agitation over night
Objective Data
-
Vital Signs:
Vital Signs
Temp Pulse Resp BP Pulse Ox
98.5 F 71 18 156/66 95
08/16/25 02:48 08/16/25 02:48 08/16/25 02:48 08/16/25 07:58 08/16/25 02:48
I&O
08/15/25 08/16/25 08/17/25
06:59 06:59 06:59
Intake Total 1680 / 1680 1120 / 1120
Output Total 325 / 325
Balance 1355 / 1355 1120 / 1120
[2025-08-16] MEDS: FEOSOL 325 MG PO (10:40)
[2025-08-16] MEDS: VITAMIN B-12 1000 MCG PO (10:40)
[2025-08-16] MEDS: LIPITOR 80 MG PO (17:23)
[2025-08-16] MEDS: REMERON 7.5 MG PO (22:46)
--- NOTE | 2025-08-16 23:19 | W.PN.UPDATE ---
Update Note
Progress Note Update
pt seen, spoke with daughter and her . pt calmer with me, family confirms this. I asked her (in private) about her wish to have God take her, says that is what she would like but knows it is not up to her. misses twin sister very much,
believes they will be reunited after pt dies. daughter supports this, lets mother know that if she does not want to keep living it is her choice, just as long as it is natural. pt again asked me if I were her father (also asks son in law this.) no
med changes
[2025-08-17 03:00] VITALS: BP 135/69
[2025-08-17] MEDS: SYNTHROID 88 MCG PO (06:20)
[2025-08-17 07:30] VITALS: BP 164/63
[2025-08-17] MEDS: VITAMIN B-12 1000 MCG PO (08:47)
[2025-08-17] MEDS: VITAMIN B1 100 MG PO (08:47)
[2025-08-17] MEDS: ZESTRIL 10 MG PO (08:48)
[2025-08-17] MEDS: LEXAPRO 10 MG PO (08:48)
[2025-08-17] MEDS: HIPREX 1 GRAM PO (08:48)
[2025-08-17] MEDS: LOW STRENGTH ASPIRIN 81 MG PO (08:48)
[2025-08-17] MEDS: FEOSOL 325 MG PO (08:48)
[2025-08-17] MEDS: DESENEX/MITRAZOL/ZEASORB 1 APPLIC TOPICAL (08:49)
--- NOTE | 2025-08-17 09:17 | W.PN.HOSP.TC ---
Today's Communication/Plan
-
dc
Assessment / Plan
Assessment / Plan
Physical Exam:-
General: doing well, pleasant. No Apparent Distress
HEENT: Normocephalic, Atraumatic and Moist Mucous Membranes
Respiratory: Clear to Auscultation; Negative Wheezes, Rales or Rhonchi
Cardiac: S1S2
GI: Soft, Normal Bowel Sounds, non tender.
Musculoskeletal: No Clubbing, No Cyanosis and No Edema
Neuro: Awake, Alert , oriented to surroundings at times, she followed commands. Non-focal.
Psych; calm, apparent dementia
85-year-old female presented with acute left-sided weakness, received TNK.
# Left-sided weakness with expressive aphasia with concern for an acute right MCA CVA s/p TNK (administered at 13:27 on 08/12/2025), possible TIA. d/w neurology, possible TIA, cant ruled it out.
She seems to have good clinical improvement
MRI no stroke
Speech ok for oral diet
Started on aspirin, statin.
Started on Thiamine also, recommend out patient follow- up with Geropsych.
neurology : started IM vitamin B12, now on oral
Appreciate ICU & Neurology help
# Urinary tract infection, finish course of treatment. Discussed with daughter, history of recurrent UTI. Started on Hiprex.
# Acute diarrhea
from AB + laxatives
resolved.
# Cognitive decline
c/w dementia, could be Alzheimer or vascular
seems to progress lately
Daughter is child care teacher, private child care teacher.
Consulted psych based on family request meant to change from Celexa to Lexapro, add low-dose mirtazapine for night
Acute urinary retention
Improved with starting PT
# Mild troponin
Repeat is less
No chest pain
Repeat EKG, no changes.
Echo showed normal LVEF.
Likely due to non ischemic myocardial injury
# Drop in HGB, likely anemia of chronic disease, acute blood loss anemia( IV access)
No evidence of active bleeding but noted bruising on upper back, likely self-inflicted after receiving TNK and rubbing her back against the mattress, discussed with daughter,
Hemoglobin stable. Started on oral iron.
Hypertension:
Resume lisinopril after permissive HTN
GERD change Protonix to IV
Hypothyroidism: c/w Synthroid when allowed
All discussed with the in detail at the bedside and expressed understanding all the question answered
CODE STATUS for is a full code.
DVT prophylaxis SCD
Total dc time spent to see the patient, examine the patient, review data and lab results, discuss discharge/ treatment plan with patient, daughter, nursing staff around 65 minutes
Anticipated Discharge: Today
Subjective/Interval History
-
Date of Service: August 17, 2025
Doing well
Objective Data
-
Vital Signs:
Vital Signs
Temp Pulse Resp BP Pulse Ox
98.1 F 71 16 164/63 93
08/17/25 07:30 08/17/25 08:48 08/17/25 07:30 08/17/25 08:48 08/17/25 07:30
I&O
08/16/25 08/17/25 08/18/25
06:59 06:59 06:59
Intake Total 1120 / 1120 240 / 240
Balance 1120 / 1120 240 / 240
[2025-08-17 11:21] VITALS: BP 180/74
[2025-08-17] MEDS: APRESOLINE 5 MG PO (13:05)
--- NOTE | 2025-08-17 13:32 | W.PN.UPDATE ---
Update Note
Progress Note Update
pt seen with daughter at time of discharge. pt calmer though still some confusion (asks daughter if I am the son of one of pt's friends.) remains ready to but not suicidal, willing to acknowledge that if she dies she might be with sister but
would no longer be with daughter. daughter has arranged for caregivers. daugher asked if patient has a dementia diagnosis; I confirmed this.
--- NOTE | 2025-08-17 13:37 | W.DCSUMMARY ---
Discharge Summary
Discharge Data
Date of Admission: 08/12/25
Date of Discharge: 08/17/25
-
Pending Results: No
Hospital Course
87-year-old female who experienced a sudden onset of left-sided weakness and difficulty with speech as observed by her family. The family reported noticing left-sided eye deviation and expressive aphasia. Patient was evaluated bu neurology and she
received Tenecteplase infusion and was admitted to ICU. patient started to improve with improvement in her speech and was able to move left side of her body. MRI of the brain did not show acute stroke. Neurology felt that could be TIA.
Recommended to take aspirin 81 mg, high-dose statin with thiamine and vitamin B12 supplement. Vitamin B-12 level was 265. Patient was noted to have mildly positive troponin. EKG did not show acute ischemic changes and she did not have chest pain,
she was diagnosed to have nonischemic myocardial injury. Patient was evaluated by speech therapist and she was started on diet. She was transferred out of the ICU. Family reported decline in cognitive function. She was evaluated by psychiatrist.
Medications change to Lexapro for antidepressant/anxiety with addition of Remeron for nighttime. She was diagnosed with underlying dementia exacerbated by post TIA delirium and hospitalization. Patient was noted to have uncomplicated urinary
tract infection was given antibiotic. She remained hemodynamically stable. She was able to ambulate. She tolerated diet. research and development manager discussed with family and they wanted home discharge with home care services. Patient was discharged in a
stable condition.
Discharge Plan
-
Patient Disposition: Home with Home Care
Discharge Diagnosis/Procedures: -Left-sided weakness with expressive aphasia with concern for an acute right MCA CVA s/p TNK (administered at 13:27 on 08/12/2025), possible TIA. Seen by neurology, possible TIA, continue with 81 mg aspirin, Lipitor (
statin),Vitamin B12 and thiamine.
You will need to follow with your primary care doctor to check your liver enzymes/muscle enzyme and monitor response to statin therapy/aspirin
-underlying dementia complicated by post TIA/ stroke delirium, underlying grief at loss of twin.Seen by psychiatrist: shift citalopram to escitalopram 20 mg (celexa to lexapro) for more potency and fewer side effects. Stop excedrin PM
(anticholinergic). Remeron 7.5 mg hs for sleep.
- Acute blood loss anemia following administration of thrombolytics, he was started on iron therapy
-UTI, finished course of treatment. Started on Hiprex.
Diet: As tolerated
Referrals:
UNKNOWN - PT NOT,[facility] [Family Provider]
Prescriptions:
New
ferrous sulfate [FeroSul] 325 mg (65 mg iron) Tablet
325 mg PO DAILY Qty: 30 0RF
methenamine hippurate 1 gram Tablet
1 g PO DAILY Qty: 30 0RF
atorvastatin 80 mg Tablet
80 mg PO QPM Qty: 30 0RF
aspirin 81 mg Tablet,Chewable
81 mg PO DAILY Qty: 30 0RF
escitalopram oxalate 10 mg Tablet
10 mg PO DAILY Qty: 30 0RF
cyanocobalamin (vitamin B-12) [Vitamin B-12] 500 mcg Tablet
1,000 mcg PO DAILY Qty: 30 0RF
mirtazapine 7.5 mg Tablet
7.5 mg PO HS Qty: 30 0RF
thiamine mononitrate (vit B1) 100 mg Tablet
100 mg PO DAILY Qty: 30 0RF
Continued
levothyroxine [Synthroid] 88 mcg Tablet
88 mcg PO DAILY
pantoprazole [Protonix] 40 mg Tablet,Delayed Release (Dr/Ec)
40 mg PO DAILY
lisinopril 10 mg Tablet
10 mg PO DAILY
Discontinued
citalopram [Celexa] 20 mg Tablet
20 mg PO DAILY
Discharge Orders:
Discharge Patient (As Directed); Ordered 08/17/25
Ordered By: Mandi Melton
Discharge Date and Time
Print Language: HAITIAN
--- NOTE | 2025-08-17 14:20 | CM ---
Chart reviewed. Patient will d/c home today
Daughter arranged for caregivers through [facility]
Patient is current w/ [facility], will resume services
Plan: Home w/ [facility] and caregiver support
== END 2025-08-17 14:16 | disposition home health service (06) | DRG 61 ==
LOC: 4 WEST ACU 13:59
PROVIDERS: Nurse Practitioner Family; ADMITTING PHYSICIAN Internal Medicine; ATTENDING PHYSICIAN Internal Medicine; CONSULT PHYSICIAN Internal Medicine Critical Care Medicine; CONSULT PHYSICIAN Psychiatry & Neurology Neurology; EMERGENCY PHYSICIAN Emergency Medicine; OTHER PHYSICIAN Psychiatry & Neurology Psychiatry
PROC: 3E04317 Introduction of Other Thrombolytic into Central Vein, Percutaneous Approach (ICD-10-PCS; 2025-08-12)
DX: I63.411 Cerebral infarction due to embolism of right middle cerebral artery (principal); G93.41 Metabolic encephalopathy; D62 Acute posthemorrhagic anemia; F03.93 Unspecified dementia, unspecified severity, with mood disturbance; I69.354 Hemiplegia and hemiparesis following cerebral infarction affecting left non-dominant side; N39.0 Urinary tract infection, site not specified; R47.01 Aphasia; Z79.890 Hormone replacement therapy; K21.9 Gastro-esophageal reflux disease without esophagitis; E03.9 Hypothyroidism, unspecified; Z99.2 Dependence on renal dialysis; N18.9 Chronic kidney disease, unspecified; I12.9 Hypertensive chronic kidney disease with stage 1 through stage 4 chronic kidney disease, or unspecified chronic kidney disease; Z88.1 Allergy status to other antibiotic agents; Z88.5 Allergy status to narcotic agent; E78.2 Mixed hyperlipidemia; F10.21 Alcohol dependence, in remission; Z90.49 Acquired absence of other specified parts of digestive tract; Z85.3 Personal history of malignant neoplasm of breast; Z87.891 Personal history of nicotine dependence; Z82.49 Family history of ischemic heart disease and other diseases of the circulatory system; Z83.3 Family history of diabetes mellitus; D75.839 Thrombocytosis, unspecified; K76.0 Fatty (change of) liver, not elsewhere classified; H51.0 Palsy (spasm) of conjugate gaze; M85.80 Other specified disorders of bone density and structure, unspecified site; Z96.651 Presence of right artificial knee joint
CPT/HCPCS: 0042T; 70450; 70496; 70498; 70551; 71045; 80048; 80053; 80061; 81003; 81015; 82077; 82550; 82607; 82962; 83605; 83735; 84100; 84439; 84443; 84484; 85025; 85027; 85610; 85730; 86780; 87040; 87077; 87086; 87186; 92523; 92526; 92610; 93005; 93306; 95816; 96374; 97163; 97167; 97530; 97535; 99291; J3101; Q9967

== ENCOUNTER 2025-09-02 11:34 | Emergency (ER) | payer OTHER, SELFPAY ==
[2025-09-02 11:35] VITALS: BP 133/71
[2025-09-02 13:23] VITALS: BP 135/68
[2025-09-02 13:29] VITALS: BMI 28.8
[2025-09-02 13:30] VITALS: BP 114/89
--- NOTE | 2025-09-02 13:54 | ED.GENMED ---
History of Present Illness
General
Chief Complaint: Vascular Symptoms
Source: patient
Exam Limitations: none
Time Seen by Provider: 09/02/25 13:25
History of Present Illness
History of Present Illness:
85-year-old female with dementia and recent stroke on a baby aspirin presents complaining of sudden onset atraumatic pain and swelling with discoloration to the right foot. She has trouble bearing weight. No fever or chills. No other complaints.
Past History
Past History
ED Past Medical History: GERD, HTN, Hypothyroidism and Other (Bowel Obstruction, Fracture Left foot, vitamin B12 deficiency)
ED Past Surgical History: Bowel resection, Cholecystectomy (possible removed patient unsure) and Other (Multiple joint replacements. Multiple abdominal surgeries, diverticulits, bowel resection, colostomy and colostomy reversal last over 20 years
ago.)
Social History
Tobacco: Former smoker
Alcohol: Occasional
Drug: None
Personal:
Living: with family
Employment: Retired
Family History
Family History: Other (Noncontributory)
Phy Exam
Physical Exam
Physical Exam:
General: No well-appearing female no acute respiratory distress HEENT normal cephalic atraumatic
Vascular: 2+ DP pulse right foot
Musculoskeletal exam: The patient is tender over the MTP joint of the right first toe. There is mild general swelling of the dorsal aspect of the foot with associated ecchymosis but no erythema over the foot. There is subtle erythema of the MTP
joint of the right first toe.
Neurologic: Good sensation right foot
Course
Orders/Labs/Results
Orders:
Orders
09/02/25 13:44
CR Foot - Right Min 3 Views Urgent
Comment:
Reason For Exam: pain in foot
Venous Doppler Lwr Ext Rt [US Periph Venous LOWER Ext RT] Urgent
Comment:
Reason For Exam: swelling
09/02/25 16:44
Doxycycline [Vibramycin] 100 mg PO NOW STA
Prednisone [Deltasone] 50 mg PO NOW STA
Vital Signs
Initial and Last Documented VS:
Initial Vital Signs
Temp Pulse Resp BP Pulse Ox
98.0 F 71 16 133/71 98
09/02/25 11:35 09/02/25 11:35 09/02/25 11:35 09/02/25 11:35 09/02/25 11:35
Last Documented Vital Signs
Temp Pulse Resp BP Pulse Ox
98.0 F 71 13 115/48 98
09/02/25 11:35 09/02/25 15:00 09/02/25 15:00 09/02/25 15:00 09/02/25 15:00
MDM/Problems Addressed
Differential Diagnosis Includes:
Right foot pain. Consider fracture versus gout versus cellulitis versus DVT vs gout. There is good vascular flow to the foot. Do not suspect an ischemic foot
Ultrasound right leg x-ray right foot pending
*Pulse Oximetry
SaO2: 94
Oxygen Mode of Delivery: Room air
Patient hypoxic: no
*Critical Care Note
Total Time (30-74mins, 75-104mins- exclusive of procedures): Not Applicable
Update Note
Update Note:
X-ray negative for acute finding ultrasound negative for DVT. Question cellulitis versus gout. Most likely gout but will cover for cellulitis with doxycycline and treat with prednisone otherwise. Discussed with daughter. Stable for discharge
ED Attending Note
-
Portions of this chart may have been created with voice recognition software.� Occasional wrong word or��sound alike� substitutions may have occurred due to the inherent limitations of voice recognition software.
Discharge Plan
Departure
Patient Disposition: Home (Routine Discharge)
Date of Disposition: 09/02/25
Time of Disposition: 16:47
Patient with high blood pressure during this ER visit?: No
Discharge Problem:
Acute foot pain
Instructions: Gout, Low-purine diet, Cellulitis (skin infection) in adults - ED (DC)
Prescriptions:
New
doxycycline hyclate 100 mg capsule
100 mg PO BID Qty: 14 0RF
prednisone 20 mg tablet
40 mg PO DAILY 5 Days Qty: 10 0RF
No Action
levothyroxine [Synthroid] 88 mcg Tablet
88 mcg PO DAILY
pantoprazole [Protonix] 40 mg Tablet,Delayed Release (Dr/Ec)
40 mg PO DAILY
lisinopril 10 mg Tablet
10 mg PO DAILY
ferrous sulfate [FeroSul] 325 mg (65 mg iron) Tablet
325 mg PO DAILY Qty: 30 0RF
methenamine hippurate 1 gram Tablet
1 g PO DAILY Qty: 30 0RF
atorvastatin 80 mg Tablet
80 mg PO QPM Qty: 30 0RF
aspirin 81 mg Tablet,Chewable
81 mg PO DAILY Qty: 30 0RF
escitalopram oxalate 10 mg Tablet
10 mg PO DAILY Qty: 30 0RF
cyanocobalamin (vitamin B-12) [Vitamin B-12] 500 mcg Tablet
1,000 mcg PO DAILY Qty: 30 0RF
mirtazapine 7.5 mg Tablet
7.5 mg PO HS Qty: 30 0RF
thiamine mononitrate (vit B1) 100 mg Tablet
100 mg PO DAILY Qty: 30 0RF
Referrals:
Jennifer Ramirez MD [Family Provider, Family Practice]
Activity Restrictions/Additional Instructions:
Use prednisone as directed. Use antibiotic as directed. Return here if worse otherwise follow-up with your doctor
Interventions
Interventions:
*Risk Screen - Suicide Last Done: 09/02/25 11:35
*General Assessment Last Done: 09/02/25 13:30
*Neglect/Abuse Screening Last Done: 09/02/25 11:35
*ED- Fall Risk Assessment Last Done: 09/02/25 13:30
ED- Cardiac Assessment Last Done: 09/02/25 13:30
ED- Pulmonary Assessment Last Done: 09/02/25 13:30
ED-Peripheral Vascular Assessment Last Done: 09/02/25 13:30
ED-Skin Assessment Last Done: 09/02/25 13:30
Discharge Date and Time
Print Language: [id number]
[2025-09-02 14:00] VITALS: BP 128/56
[2025-09-02 14:30] VITALS: BP 115/37
[2025-09-02 15:00] VITALS: BP 115/48
[2025-09-02] MEDS: DELTASONE 50 MG PO (16:56)
[2025-09-02] MEDS: VIBRAMYCIN 100 MG PO (16:56)
== END 2025-09-02 17:02 | disposition home or self-care (01) ==
LOC: EMR 11:34
PROVIDERS: EMERGENCY PHYSICIAN Emergency Medicine; FAMILY PHYSICIAN Family Medicine
DX: M79.671 Pain in right foot (principal); F03.90 Unspecified dementia, unspecified severity, without behavioral disturbance, psychotic disturbance, mood disturbance, and anxiety; E03.9 Hypothyroidism, unspecified; I10 Essential (primary) hypertension; Z86.73 Personal history of transient ischemic attack (TIA), and cerebral infarction without residual deficits; Z87.891 Personal history of nicotine dependence; Z90.49 Acquired absence of other specified parts of digestive tract; Z93.3 Colostomy status; Z96.60 Presence of unspecified orthopedic joint implant
CPT/HCPCS: 99284; 73630; 93971